=== PATIENT | female | born 2000 | race Hispanic/Latino ===

== ENCOUNTER 2020-09-24 14:42 | Emergency (ER) | payer OTHER, SELFPAY ==
[2020-09-24 15:09] LABS: Absolute Lymphocytes (CBC) 2.1 K/uL (0.7-4.9); Basophils % 0.3 % (0-1.3); Hematocrit 50.3 % (36.0-45.0); Lymphocytes % 10.3 % (15.3-44.8); MPV 10.7 fL (7.6-11.3); RBC Red Blood Cell Count 5.59 M/uL (3.86-4.86)
[2020-09-24 15:26] LABS: ALT/SGPT 46 U/L (12-78); AST/SGOT 22 U/L (15-37); Albumin 4.9 g/dL (3.4-5.0); Alkaline Phosphatase 130 U/L (45-117); BUN Blood Urea Nitrogen 9 mg/dL (7-18); Bicarbonate 20 mmol/L (21-32); Bilirubin Direct 0.2 mg/dL (0-0.2); Bilirubin Total 0.8 mg/dL (0.2-1.0); Lipase 116 U/L (73-393); Potassium 4.1 mmol/L (3.5-5.1); Protein, Total 9.6 g/dL (6.4-8.2); Sodium Level 135 mmol/L (136-145)
[2020-09-24 15:28] LABS: Glucose Level 403 mg/dL (74-106)
[2020-09-24 15:51] LABS: Urine Specific Gravity >1.030 (1.005-1.030)
[2020-09-24 15:51] LABS: Urine Blood 1+ (NEG); Urine Glucose 2+ (NEG); Urine Protein 3+ (NEG); Urine Specific Gravity >1.030 (1.005-1.030); Urine pH 5.5 (5.0-7.0)
[2020-09-24] MEDS ORDERED: INSULIN -REGULAR HUMAN 50 UNIT/0.5 ML ML ONE (16:09)
[2020-09-24] MEDS ORDERED: MORPHINE 2 MG/ML SYR ONE (16:10)
[2020-09-24] MEDS ORDERED: ACETAMINOPHEN 500 MG TAB ONE (16:11)
[2020-09-24] MEDS ORDERED: ONDANSETRON 4 MG/2 ML VIAL ONE (16:11)
[2020-09-24 16:19] LABS: Blood Morphology Comment NOT SEEN (NOT SEEN); Platelet Estimate ADEQ
[2020-09-24 16:30] LABS: Arterial Blood Carboxyhemoglob 0.9 % (0-1.5); Blood Gas Oxyhemoglobin 96.2 % (94-97); Blood O2 Saturation 97.9 % (92-98.5)
--- NOTE | 2020-09-24 17:30 | RAD REPORT ---
EXAM DESCRIPTION: CT - Chest Abdomen Pelvis W Cont - 09/24/2020 5:06 pm CLINICAL HISTORY: Chest and abdominal pain COMPARISON: none TECHNIQUE: Computed axial tomography of the chest, abdomen and pelvis was obtained. 100 cc Isovue-30 0 was administered intravenously. Oral contrast was not requested limiting evaluation of bowel All CT scans are performed using dose optimization technique as appropriate and may include automated exposure control or mA/KV adjustment according to patient size. FINDINGS: A 3 millimeter right middle lobe nodule No mediastinal or hilar lymphadenopathy A pleural effusion is not present. A pericardial effusion is not noted Hepatomegaly. Fatty liver. Spleen, pancreas, adrenals and kidneys appear unremarkable. There is no evidence of diverticulitis. Normal appendix No adnexal mass IMPRESSION: 3 millimeter right middle lobe nodule likely benign. If patient is high risk follow up C T chest in 6-12 months recommended Fatty liver.
[2020-09-24] MEDS ORDERED: NA CHLORIDE 0.9% 1,000 ML ONE (18:14)
[2020-09-24 19:58] LABS: BUN Blood Urea Nitrogen 8 mg/dL (7-18); Bicarbonate 21 mmol/L (21-32); Glucose Level 227 mg/dL (74-106); Potassium 3.9 mmol/L (3.5-5.1); Sodium Level 139 mmol/L (136-145)
--- NOTE | 2020-09-24 20:11 | ER ---
Nurse's Notes [facility] Name: Maddie Renteria Age: 19 yrs Sex: Female : 2000 Arrival Date: 09/24/2020 Time: 14:43 Bed 20 Private MD: Diagnosis: Vomiting;Hyperglycemia, unspecified Presentation: 09/24 14:45 Chief complaint: Patient states: Pt c/o left sided pain and low back pain, vomiting ah started at noon today. EMS states that it was "green bile" Pt does admit to drinking a large amount of alcohol yesterday. Coronavirus screen: At this time, the client does not indicate any symptoms associated with coronavirus-19. Ebola Screen: No symptoms or risks identified at this time. Risk Assessment: Do you want to hurt yourself or someone else? Patient reports no desire to harm self or others. Onset of symptoms was September 24, 2020. 14:45 Method Of Arrival: EMS: [facility] 14:45 Acuity: TANIYA 3 ah 17:33 Acuity: TANIYA 2 18:45 Initial Sepsis Screen: Does the patient meet any 2 criteria? Yes Does the patient have ah a suspected source of infection? No. Patient's initial sepsis screen is negative. Historical: - Allergies: 15:43 No Known Allergies; - Home Meds: 15:43 levemir insulin daily [Active]; - PMHx: 15:43 Diabetes - IDDM; - PSHx: 15:43 None; - Immunization history:: Adult Immunizations not up to date. - Social history:: Smoking status: Patient denies any tobacco usage or history of. Patient uses alcohol, weekly. Screenin:44 Abuse screen: Denies threats or abuse. Nutritional screening: No deficits noted. Tuberculosis screening: No symptoms or risk factors identified. Fall Risk None identified. Assessment: 16:00 General: Appears uncomfortable, Behavior is calm, cooperative, appropriate for age. Pain: Complains of pain in anterior aspect of left lateral abdomen and left upper quadrant Pain currently is 8 out of 10 on a pain scale. Quality of pain is described as aching, Pain began 4 hours ago. Neuro: Level of Consciousness is awake, alert, obeys commands, Oriented to person, place, time, situation, Appropriate for age. Cardiovascular: Heart tones S1 S2 present Capillary refill < 3 seconds Patient's skin is warm and dry. Respiratory: Airway is patent Respiratory effort is even, unlabored, Respiratory pattern is regular, Breath sounds are clear bilaterally. GI: Bowel sounds present X 4 quads. Abd is soft Reports vomiting. : No signs and/or symptoms were reported regarding the genitourinary system. Derm: Skin is intact, is healthy with good turgor. Musculoskeletal: No signs and/or symptoms reported regarding the musculoskeletal system. 17:00 Reassessment: Patient and/or family updated on plan of care and expected duration. Pain ah level reassessed. Patient is alert, oriented x 3, equal unlabored respirations, skin warm/dry/pink. Pt resting at this time. No needs voiced. 18:48 Reassessment: Accucheck repeated, 233. Pt states that pain is still better at this ah time. No needs voiced. 19:22 Reassessment: Patient and/or family updated on plan of care and expected duration. Pain ea level reassessed. Patient is alert, oriented x 3, equal unlabored respirations, skin warm/dry/pink. Pt reports she is feeling better. 20:16 Reassessment: Patient and/or family updated on plan of care and expected duration. Pain ea level reassessed. Patient is alert, oriented x 3, equal unlabored respirations, skin warm/dry/pink. Discharge instruction given to patient, verbalized the understanding of instruction. Pt left ED ambulatory tolerating well. Patient states feeling better. Vital Signs: 15:00 BP 148 / 97 LA (auto/reg); Pulse 98; Resp 12; Temp 97.8(O); Pulse Ox 97% ; Pain 7/10; jp3 16:00 BP 139 / 95; Pulse 109; Resp 14; Pulse Ox 96% ; ah 17:00 BP 124 / 77; Pulse 101; Resp 14; Pulse Ox 97% ; ah 18:00 BP 122 / 71; Pulse 113; Resp 16; Pulse Ox 97% ; ah 20:05 BP 114 / 69; Pulse 90; Resp 18; Pulse Ox 98% ; ea 15:00 POC Glucose-- 430 jp3 ED Course: 14:43 Patient arrived in ED. ds1 14:44 Tim Barnard PA is PHCP. jmm 14:44 Keysha Osman MD is Attending Physician. frantz 14:58 Clarissa Gallegos, RN is Primary Nurse. ah 15:00 Initial lab(s) drawn, by sc, sent to lab. Inserted saline lock: 20 gauge in right jp3 antecubital area, using aseptic technique. Blood collected. Patient maintains SpO2 saturation greater than 95% on room air. 15:02 Placed in gown. Bed in low position. Call light in reach. Side rails up X2. Warm jp3 blanket given. Verbal reassurance given. environmental monitoring technician on. Pulse ox on. NIBP on. 15:39 Triage completed. ah 15:43 Urine collected: clean catch specimen, clear, yary colored. jp3 18:45 Arm band placed on right wrist. 19:07 Primary Nurse role handed off by Clarissa Gallegos, RN mw2 19:22 Judy Smith, COLT is Primary Nurse. ea 20:17 No provider procedures requiring assistance completed. IV discontinued, intact, ea bleeding controlled, No redness/swelling at site. Pressure dressing applied. Administered Medications: 15:34 Drug: NS 0.9% 2000 ml Route: IV; Rate: 1 bolus; Site: right antecubital; ah 15:57 Drug: Tylenol 1000 mg Route: PO; ah 18:02 Follow up: Response: No adverse reaction 15:57 Drug: Zofran (Ondansetron) 4 mg Route: IVP; Site: right antecubital; ah 18:02 Follow up: Response: No adverse reaction 15:58 Drug: morphine 2 mg Route: IVP; Site: right antecubital; ah 18:02 Follow up: Response: No adverse reaction 16:00 Drug: Insulin Regular Human 10 units {Co-Signature: vg1 (Marjorie Wasserman RN).} Route: ah IVP; Site: right antecubital; 19:22 Follow up: Response: No adverse reaction 17:55 Drug: NS 0.9% 1000 ml Route: IV; Rate: 1 bolus; Site: right antecubital; ah 20:15 Follow up: Response: No adverse reaction; IV Status: Completed infusion; IV Intake: ea 1000ml Point of Care Testing: Urine : 15:43 hCG Reading: Negative; Control Reading: Positive; jp3 Intake: 20:15 IV: 1000ml; Total: 1000ml. ea Outcome: 20:11 Discharge ordered by . frantz 20:17 Discharged to home ambulatory. josé luis 20:17 Condition: stable 20:17 Discharge instructions given to patient, Instructed on discharge instructions, follow up and referral plans. medication usage, Demonstrated understanding of instructions, follow-up care, medications, Prescriptions given X 1. 20:19 Patient left the ED. ea Signatures: Tim Barnard PA PA jmm Sanford, Demi ds1 Fatmata Carbajal, COLT RN Judy Lara RN RN Layne Vail mw2 Viraj Lebron jp3 Clarissa Gallegos RN RN jerson Wasserman RN vg1
--- NOTE | 2020-09-24 20:11 | EDPHYS ---
Physician Documentation [facility] Name: Maddie Renteria Age: 19 yrs Sex: Female : 2000 Arrival Date: 09/24/2020 Time: 14:43 Bed 20 Private MD: ED Physician Keysha Osman HPI: 09/24 16:41 This 19 yrs old Female presents to ER via EMS with complaints of Back Pain, jmm Abdominal Pain. 16:41 The patient presents with pain that is acute. Onset: The symptoms/episode jmm began/occurred this morning. The pain radiates to the left upper quadrant. Associated signs and symptoms: Pertinent positives: vomiting. Modifying factors: The patient symptoms are alleviated by nothing, the patient symptoms are aggravated by nothing. This is a 19 year old female with a history of DM, that presents to the ED with complaints of left flank pain, vomiting beginning earlier today. Pain has migrated to the lower back and will occasionally migrate to the left upper quadrant. . Historical: - Allergies: 15:43 No Known Allergies; - Home Meds: 15:43 levemir insulin daily [Active]; - PMHx: 15:43 Diabetes - IDDM; - PSHx: 15:43 None; - Immunization history:: Adult Immunizations not up to date. - Social history:: Smoking status: Patient denies any tobacco usage or history of. Patient uses alcohol, weekly. ROS: 16:41 Constitutional: Negative for fever, chills, and weight loss, Cardiovascular: Negative jmm for chest pain, palpitations, and edema, Respiratory: Negative for shortness of breath, cough, wheezing, and pleuritic chest pain. 16:41 Abdomen/GI: Positive for abdominal pain, nausea and vomiting, diarrhea. 16:41 All other systems are negative. Exam: 16:41 Constitutional: This is a well developed, well nourished patient who is awake, alert, jmm and in no acute distress. Head/Face: atraumatic. Eyes: EOMI, no conjunctival erythema appreciated ENT: Moist Mucus Membranes Neck: Trachea midline, Supple Chest/axilla: Normal chest wall appearance and motion. Cardiovascular: Regular rate and rhythm. No edema appreciated Respiratory: Normal respirations, no respiratory distress appreciated 16:41 Back: Normal ROM Skin: General appearance color normal MS/ Extremity: Moves all extremities, no obvious deformities appreciated, no edema noted to the lower extremities Neuro: Awake and alert, normal gait Psych: Behavior is normal, Mood is normal, Patient is cooperative and pleasant 16:41 Abdomen/GI: Inspection: abdomen appears normal, Bowel sounds: normal, Palpation: soft, mild abdominal tenderness, in the left upper quadrant. Vital Signs: 15:00 BP 148 / 97 LA (auto/reg); Pulse 98; Resp 12; Temp 97.8(O); Pulse Ox 97% ; Pain 7/10; jp3 16:00 BP 139 / 95; Pulse 109; Resp 14; Pulse Ox 96% ; ah 17:00 BP 124 / 77; Pulse 101; Resp 14; Pulse Ox 97% ; ah 18:00 BP 122 / 71; Pulse 113; Resp 16; Pulse Ox 97% ; ah 20:05 BP 114 / 69; Pulse 90; Resp 18; Pulse Ox 98% ; ea 15:00 POC Glucose-- 430 jp3 MDM: 15:07 Patient medically screened. [facility] 20:09 Data reviewed: vital signs, nurses notes. Counseling: I had a detailed discussion with frantz the patient and/or guardian regarding: the historical points, exam findings, and any diagnostic results supporting the discharge/admit diagnosis, lab results, radiology results, the need for outpatient follow up, to return to the emergency department if symptoms worsen or persist or if there are any questions or concerns that arise at home. ED course: Patient is alert and non toxic in appearance in the ED. Able to tolerate PO in the ED. Decreased BGL in the ED. No anion gap, normal abg. Advised to follow up with pcp and otherwise given strict return precautions. . 09/24 14:45 Order name: Basic Metabolic Panel [facility] 09/24 14:45 Order name: CBC with Diff [facility] 09/24 14:45 Order name: Hepatic Function [facility] 09/24 14:45 Order name: Lipase [facility] 09/24 14:46 Order name: Basic Metabolic Panel; Complete Time: 15:32 [facility] 09/24 14:46 Order name: CBC with Automated Diff; Complete Time: 16:26 [facility] 09/24 14:46 Order name: Liver (Hepatic) Function; Complete Time: 15:32 [facility] 09/24 14:46 Order name: Lipase; Complete Time: 15:32 [facility] 09/24 15:08 Order name: Glucose, Ancillary Testing; Complete Time: 15:11 [facility] 09/24 15:24 Order name: ABG; Complete Time: 16:34 [facility] 09/24 15:44 Order name: Urine Dipstick--Ancillary (enter results); Complete Time: 16:00 09/24 15:46 Order name: Urine --Ancillary (enter results); Complete Time: 16:00 09/24 16:00 Order name: D-Dimer; Complete Time: 16:26 [facility] 09/24 16:19 Order name: Manual Differential; Complete Time: 16:26 [facility] 09/24 14:45 Order name: IV Saline Lock; Complete Time: 15:00 [facility] 09/24 14:45 Order name: Labs collected and sent; Complete Time: 15:00 [facility] 09/24 14:45 Order name: Urine Dipstick-Ancillary (obtain specimen); Complete Time: 15:43 [facility] 09/24 14:45 Order name: Urine Test (obtain specimen); Complete Time: 15:43 [facility] 09/24 15:28 Order name: Misc. Order: need upt; Complete Time: 15:43 [facility] 09/24 16:26 Order name: CT Chest, Abdomen, Pelvis - W/Contrast [facility] 09/24 17:31 Order name: CT; Complete Time: 17:32 [facility] 09/24 18:59 Order name: Glucose, Ancillary Testing; Complete Time: 19:00 [facility] 09/24 19:05 Order name: BMP; Complete Time: 20:09 [facility] Administered Medications: 15:34 Drug: NS 0.9% 2000 ml Route: IV; Rate: 1 bolus; Site: right antecubital; 15:57 Drug: Tylenol 1000 mg Route: PO; 18:02 Follow up: Response: No adverse reaction 15:57 Drug: Zofran (Ondansetron) 4 mg Route: IVP; Site: right antecubital; 18:02 Follow up: Response: No adverse reaction 15:58 Drug: morphine 2 mg Route: IVP; Site: right antecubital; 18:02 Follow up: Response: No adverse reaction 16:00 Drug: Insulin Regular Human 10 units {Co-Signature: vg1 (Marjorie Wasserman RN).} Route: ah IVP; Site: right antecubital; 19:22 Follow up: Response: No adverse reaction 17:55 Drug: NS 0.9% 1000 ml Route: IV; Rate: 1 bolus; Site: right antecubital; 20:15 Follow up: Response: No adverse reaction; IV Status: Completed infusion; IV Intake: ea 1000ml Point of Care Testing: Urine : 15:43 hCG Reading: Negative; Control Reading: Positive; jp3 Disposition: 09/25 18:30 Co-signature as Attending Physician, Keysha Osman MD. ma2 Disposition: 09/24/20 20:11 Discharged to Home. Impression: Vomiting, Hyperglycemia, unspecified. - Condition is Stable. - Discharge Instructions: Nausea and Vomiting, Adult. - Prescriptions for Zofran ODT 4 mg Oral tablet,disintegrating - place 1 tablet by TRANSLINGUAL route every 4-6 hours; 20 tablet. - Medication Reconciliation Form, Thank You Letter, Antibiotic Education, Prescription Opioid Use form. - Follow up: Private Physician; When: 2 - 3 days; Reason: Recheck today's complaints, Continuance of care, Re-evaluation by your physician. Signatures: Dispatcher [employer] EDMS Tim Barnard PA PA jmm Antunez, Elena, RN RN ea Alzahri, Mohammad, MD MD or2 Clarissa Gallegos, RN RN jerson Wasserman RN vg1 Corrections: (The following items were deleted from the chart) 09/24 20:19 20:11 09/24/2020 20:11 Discharged to Home. Impression: Vomiting; Hyperglycemia, ea unspecified. Condition is Stable. Forms are Medication Reconciliation Form, Thank You Letter, Antibiotic Education, Prescription Opioid Use. Follow up: Private Physician; When: 2 - 3 days; Reason: Recheck today's complaints, Continuance of care, Re-evaluation by your physician. frantz
[2020-09-24 20:37] VITALS: TEMP 97.8
[2020-09-24 20:43] VITALS: BP 114/69; O2SAT 98
== END 2020-09-24 20:19 | disposition home or self-care (01) ==
LOC: ER 14:42
DX: E11.65 Type 2 diabetes mellitus with hyperglycemia (principal); Z79.4 Long term (current) use of insulin; R11.10 Vomiting, unspecified
CPT/HCPCS: 36415; 71260; 74177; 80048; 80076; 81003; 81025; 82805; 82947; 83690; 85025; 85379; 96361; 96374; 96375; 99285; J2270; J2405; J7030; Q9967

== ENCOUNTER 2021-09-03 12:05 | Inpatient (IN) | payer SELFPAY ==
[2021-09-03] MEDS ORDERED: NA CHLORIDE 0.9% 2,000 ML ONE (12:31)
[2021-09-03 12:45] LABS: Urine Blood 1+ (Negative); Urine Glucose 2+ (Negative); Urine Protein 3+ (Negative); Urine Specific Gravity >=1.030 (1.005-1.030)
[2021-09-03] MEDS ORDERED: INSULIN -REGULAR HUMAN 100 UNIT in NA CHLORIDE 0.9% 100 ML IV SCH (13:00)
[2021-09-03 13:01] LABS: Barbiturates NEGATIVE (NEGATIVE); Benzodiazepines POSITIVE (NEGATIVE); Cocaine POSITIVE (NEGATIVE); METHAMPHETAM POSITIVE (NEGATIVE); Methadone NEGATIVE (NEGATIVE); Opiates NEGATIVE (NEGATIVE); Phencyclidine NEGATIVE (NEGATIVE); THC Cannibis POSITIVE (NEGATIVE)
[2021-09-03 13:04] LABS: Urine Specific Gravity/Preg >1.030 (1.005-1.030)
[2021-09-03 13:11] LABS: Absolute Lymphocytes (CBC) 4.9 K/uL (0.7-4.9); Hematocrit 49.5 % (36.0-45.0); Lymphocytes % 10.6 % (15.3-44.8); MPV 10.4 fL (7.6-11.3); RBC Red Blood Cell Count 5.03 M/uL (3.86-4.86)
[2021-09-03 13:16] LABS: Protime INR 0.98
[2021-09-03 13:33] LABS: Blood Morphology Comment NOT SEEN (NOT SEEN); Platelet Estimate ADEQ
[2021-09-03 13:44] LABS: ALT/SGPT 35 U/L (12-78); AST/SGOT 24 U/L (15-37); Albumin 3.6 g/dL (3.4-5.0); Alkaline Phosphatase 139 U/L (45-117); BUN Blood Urea Nitrogen 18 mg/dL (7-18); Bilirubin Direct < 0.1 mg/dL (0-0.2); Bilirubin Total 0.5 mg/dL (0.2-1.0); Glucose Level 834 mg/dL (74-106); Potassium 4.8 mmol/L (3.5-5.1); Protein, Total 8.3 g/dL (6.4-8.2); Sodium Level 128 mmol/L (136-145)
[2021-09-03 13:46] LABS: Bicarbonate 5 mmol/L (21-32)
[2021-09-03] MEDS ORDERED: PIPERACIL/TAZO 3.375 GM VIAL IV ONE (13:57)
[2021-09-03] MEDS ORDERED: NA CHLORIDE 0.9% 0 ML ONE (13:57)
[2021-09-03 13:58] LABS: Arterial Blood Carboxyhemoglob 1.2 % (0-1.5); Blood Gas Oxyhemoglobin 94.8 % (94-97); Blood O2 Saturation 97.4 % (92-98.5)
[2021-09-03] MEDS ORDERED: NA CHLORIDE 0.9% 100 ML ONE (13:59)
[2021-09-03] MEDS ORDERED: NA CHLORIDE 0.9% 1,000 ML ONE ×2 (14:02→19:42)
[2021-09-03] MEDS ORDERED: NACHLORIDE 0.45% 1,000 ML with NA BICARB 8.4% 100 MEQ IV SCH ×2 (15:00)
--- NOTE | 2021-09-03 15:35 | ER ---
Nurse's Notes [facility] Name: Maddie Renteria Age: 20 yrs Sex: Female : 2000 Arrival Date: 09/03/2021 Time: 12:10 Bed 5 Private MD: Diagnosis: Type 1 diabetes mellitus with ketoacidosis without coma;Dehydration;Drug abuse counseling and surveillance of drug abuser;Elevated white blood cell count Presentation: 09/03 12:05 Chief complaint: EMS states: At apporximately 1130 EMS was toned out by family to get vg1 pt from friends house. Pt was found on the porch and moaning. States family stated has depression and DM, and is noncompliant with medications; sister stated 'I know for the past couple of days shes been drinking alcohol and taking Xanax, ectasy, and meth.' EMS stated took pt BS and it read 'high'; also stated gave 2mg of Narcan. 12:05 Coronavirus screen: Vaccine status: Patient reports being unvaccinated. Client denies vg1 travel out of the [place] in the last 14 days. Ebola Screen: Patient negative for fever greater than or equal to 101.5 degrees Fahrenheit, and additional compatible Ebola Virus Disease symptoms. Initial Sepsis Screen: Does the patient meet any 2 criteria? RR > 20 per min. Temp <36.0*C (96.8*F)) or > 38.3*C (100.9*F). Yes Does the patient have a suspected source of infection? No. Patient's initial sepsis screen is negative. Risk Assessment: Do you want to hurt yourself or someone else? Patient reports no desire to harm self or others. Onset of symptoms was September 03, 2021. 12:05 Method Of Arrival: EMS: [facility] vg1 12:05 Acuity: TANIYA 2 vg1 Triage Assessment: 12:10 General: Appears distressed, uncomfortable, Behavior is drowsy. Pain: Denies pain. vg1 EENT: appears to have dry blood around lips. Neuro: Level of Consciousness is awake, alert, lethargic, listless, Oriented to Speech is slurred. Cardiovascular: Capillary refill is > 3 seconds in bilateral fingers Rhythm is sinus rhythm. Respiratory: Airway is patent Respiratory effort is even, unlabored, Respiratory pattern is Kussmaul tachypnea. GI: Abdomen is flat, non-distended. : No signs and/or symptoms were reported regarding the genitourinary system. Urine is clear. Derm: Skin is intact, Skin temperature is cold. Musculoskeletal: Capillary refill is > 3 seconds, in bilateral fingers. 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 - Social history:: Smoking status: Patient reports the use of cigarette tobacco products, denies chronic smoking, but will smoke occasionally. Screenin:56 Nutritional screening: No deficits noted. Tuberculosis screening: No symptoms or risk vg1 factors identified. Fall Risk No fall in past 12 months (0 pts). No secondary diagnosis (0 pts). IV access (20 points). Ambulatory Aid- None/Bed Rest/Nurse Assist (0 pts). Gait- Normal/Bed Rest/Wheelchair (0 pts) Mental Status- Overestimates/Forgets Limitations (15 pts.). Total Hernandes Fall Scale indicates Low Risk Score (25-44 pts). Fall prevention measures have been instituted. Side Rails Up X 2 Placed close to Nursing Station Family Present and informed to notify staff if they need to leave bedside. 09/04 01:00 Abuse screen: Denies threats or abuse. al4 Assessment: 09/03 12:56 Reassessment: SEE TRIAGE. vg1 14:00 Reassessment: Patient appears in no apparent distress at this time. Patient and/or vg1 family updated on plan of care and expected duration. Pain level reassessed. awake and alert. 14:50 Reassessment: Patient appears in no apparent distress at this time. Patient and/or vg1 family updated on plan of care and expected duration. Pain level reassessed. When pt is asked questions pt is able to state 'yes' or 'no' answers. Pt is awake, alert, and is able to recognized family. Pt mother at bedside. Patient denies pain at this time. 15:18 Reassessment: Received VO from Hilton RESENDIZ to change pts Insulin drip to 7 units/hr due to vg1 glucose results of 571. 15:20 Reassessment: Sodium Bicarb at 75 ml/ hr started, placed to Right femoral IV. vg1 16:00 Reassessment: Patient appears in no apparent distress at this time. Patient and/or vg1 family updated on plan of care and expected duration. Pain level reassessed. Patient is alert, oriented x 3, equal unlabored respirations, skin warm/dry/pink. Patient denies pain at this time. 20:00 General: Appears in no apparent distress. comfortable, Behavior is calm, cooperative, al4 drowsy. Pain: Denies pain. Neuro: Level of Consciousness is awake, obeys commands, . Oriented to person, place, time, situation, Speech is slightly slurred. Cardiovascular: Heart tones present Capillary refill < 3 seconds Patient's skin is warm and dry. Pulses are 2+ in right radial artery, right dorsalis pedis artery, left radial artery and left dorsalis pedis artery Rhythm is sinus tachycardia. Respiratory: Airway is patent Respiratory effort is even, unlabored, Respiratory pattern is regular, symmetrical. GI: Abdomen is non-distended, Bowel sounds present X 4 quads. : Freeman in place. Derm: No signs and/or symptoms reported regarding the dermatologic system. Musculoskeletal: Circulation, motion, and sensation intact. Capillary refill < 3 seconds. 20:00 EENT: dry blood around lips, patient can open mouth and smile. al4 20:00 Reassessment: physician gave permission for ice chips. al4 22:30 Reassessment: No changes from previously documented assessment. Patient and/or family al4 updated on plan of care and expected duration. Pain level reassessed. Mother at bedside. All questions answered. Patient is sleeping.. 09/04 01:23 Reassessment: ASTRID Tatum is aware of high HR and high RR. . al4 01:23 Reassessment: Patient and/or family updated on plan of care and expected duration. Pain al4 level reassessed. Patient denies pain at this time. 02:17 Reassessment: Patient and/or family updated on plan of care and expected duration. Pain al4 level reassessed. Patient denies pain at this time. 03:17 Reassessment: No changes from previously documented assessment. al4 04:15 Reassessment: No changes from previously documented assessment. Patient and/or family al4 updated on plan of care and expected duration. Pain level reassessed. Vital Signs: 09/03 12:05 BP 121 / 72; Pulse 97; Resp 40; Temp 91.4(R); Pulse Ox 100% on R/A; Weight 62.14 kg; vg1 Height 5 ft. 4 in. (162.56 cm); Pain 0/10; 13:00 BP 131 / 70; Pulse 98; Resp 22; Pulse Ox 100% ; vg1 14:00 BP 134 / 78; Pulse 103; Resp 25; Pulse Ox 100% ; vg1 14:30 BP 125 / 65; Pulse 112; Resp 24; Pulse Ox 100% ; vg1 15:00 BP 135 / 81; Pulse 118; Resp 23; Pulse Ox 100% ; vg1 15:30 BP 139 / 81; Pulse 120; Resp 23; Temp 97.5(O); Pulse Ox 100% on R/A; vg1 16:00 BP 139 / 71; Pulse 125; Resp 23; Temp 98.3(O); Pulse Ox 100% on R/A; vg1 19:30 BP 119 / 79; Pulse 122; Resp 19; Pulse Ox 100% ; al4 20:30 BP 127 / 76; Pulse 133; Resp 22; Pulse Ox 100% ; al4 21:30 BP 116 / 69; Pulse 119; Resp 19; Pulse Ox 100% ; al4 22:30 BP 126 / 81; Pulse 119; Resp 20; Pulse Ox 100% on R/A; al4 23:30 BP 123 / 67; Pulse 123; Resp 20; Pulse Ox 100% on R/A; al4 09/04 00:30 BP 111 / 73; Pulse 124; Resp 30; Pulse Ox 100% on R/A; al4 01:18 BP 118 / 81; Pulse 122; Resp 20; Pulse Ox 100% ; Pain 0/10; al4 01:30 BP 140 / 86; Pulse 122; Resp 34 S; Pulse Ox 100% on R/A; Pain 0/10; al4 02:30 BP 142 / 85; Pulse 127; Resp 32; Pulse Ox 100% ; Pain 0/10; al4 03:30 BP 127 / 86; Pulse 118; Resp 25; Pulse Ox 100% ; Pain 0/10; al4 04:00 BP 122 / 79; Pulse 114; Resp 20; Temp 97.8; Pulse Ox 100% ; Pain 0/10; al4 04:30 BP 112 / 67; Pulse 115; Resp 28; Pulse Ox 100% ; Pain 0/10; al4 09/03 12:05 Body Mass Index 23.52 (62.14 kg, 162.56 cm) vg1 [place] Coma Score: 09/03 12:15 Eye Response: to voice(3). Verbal Response: inappropriate words(3). Motor Response: vg1 localizes pain(5). Total: 11. ED Course: 12:10 Patient arrived in ED. iw 12:10 Arm band placed on. vg1 12:15 Hilton Campos PA is PHCP. jr8 12:15 Kenney Branham MD is Attending Physician. jr8 12:28 Guy Reyes RN is Primary Nurse. jd3 12:28 Patient has correct armband on for positive identification. Placed in gown. Bed in low vg1 position. Call light in reach. Side rails up X2. Adult w/ patient. front desk monitor on. Pulse ox on. NIBP on. Door closed. Lights dimmed. Warm blanket given. ronit hugger placed. 12:37 EKG done, by ED staff, reviewed by Hilton RESENDIZ. mb7 12:37 freeman catheter 16f with temperature senor. vg1 12:50 Triage completed. vg1 13:00 Maintain EMS IV. Dressing intact. Good blood return noted. Site clean \T\ dry. Gauge \T\ vg 1 site: 20 g L AC. Patient maintains SpO2 saturation greater than 95% on room air. 14:18 Assisted provider with central line placement. Set up central line tray. Triple lumen vg1 line placed in right femoral. Line placed by Hilton RESENDIZ Placement verified by blood return, Dressed with Tegaderm, Blood was collected. Patient tolerated well. 14:25 First set of blood cultures drawn by me. vg1 14:40 COVID swab sent to lab. vg1 14:42 Second set of blood cultures drawn by me. vg1 15:35 Keysha Garcia MD is Hospitalizing Provider. jr8 20:06 Report given to COLT Lynn. vg1 09/04 04:53 Patient admitted, IV remains in place. al4 Administered Medications: 09/03 12:29 Not Given (Duplicate Order): Insulin Drip - (Insulin Regular Human 100 units, NS 0.9% jd3 100 ml) IV at calculated rate continuous; Standard concentration 1unit/ml; Dose for DKA is 0.1 units/kg/hr 12:37 Drug: NS 0.9% 1000 ml Route: IV; Rate: 1000 ml; Site: left antecubital; jd3 15:47 Follow up: IV Status: Completed infusion; IV Intake: 1000ml vg1 12:37 Drug: NS 0.9% 1000 ml Route: IV; Rate: 1000 ml; Site: left antecubital; jd3 15:47 Follow up: IV Status: Completed infusion; IV Intake: 1000ml vg1 13:15 Drug: Insulin Drip - (Insulin Regular Human 100 units, NS 0.9% 100 ml) {Co-Signature: vg1 jd3 (Guy Reyes RN).} Route: IV; Rate: calculated rate; Site: left antecubital; 14:07 Drug: Sodium Bicarbonate 1 amp Route: IVP; Site: right antecubital; jd3 15:46 Follow up: Response: No adverse reaction vg1 14:08 Drug: NS 0.9% 1000 ml Route: IV; Rate: 1000 ml; Site: right antecubital; jd3 15:46 Follow up: IV Status: Completed infusion; IV Intake: 1000ml vg1 14:38 Drug: Zosyn (piperacillin-tazobactam) 3.375 grams Route: IVPB; Infused Over: 60 mins; vg1 Site: right femoral; 15:46 Follow up: IV Status: Completed infusion; IV Intake: 100ml vg1 16:17 Drug: Ringers - Lactated Ringers Solution 1000 ml Route: IV; Rate: bolus; Site: left vg1 antecubital; Intake: 15:46 IV: 1000ml; Total: 1000ml. vg1 15:46 IV: 100ml; Total: 1100ml. vg1 15:47 IV: 1000ml; Total: 2100ml. vg1 15:47 IV: 1000ml; Total: 3100ml. vg1 16:29 IV: 3100ml (IV Fluid); Total: 6200ml. vg1 Output: 16:29 Urine: 1450ml (Freeman); Total: 1450ml. vg1 Outcome: 15:35 Decision to Hospitalize by Provider. jr8 09/04 04:53 Patient left the ED. bb 05:07 Admitted to ICU accompanied by nurse, accompanied by jean, Report called to COLT Cherry al4 05:07 Condition: stable 05:07 Discharge instructions given to patient, family, Instructed on the need for admit, Demonstrated understanding of instructions. Signatures: Chelle Bernardo RN RN bb Williams, Irene, RN RN iw Roszak, Josh, PA PA jr8 Guy Reyes RN RN jd3 Marjorie Wasserman RN RN vg1 Elizabeth Dozier mb7 Ismael Obrien al4 Guy Reyes RN jd3 Corrections: (The following items were deleted from the chart) 09/03 13:03 12:28 Door closed. Lights dimmed. Warm blanket given. bearhugger placed vg1 vg1 13:52 12:05 Chief complaint: EMS states: At apporximately 1130 EMS was toned out by family to vg1 get pt from friends house. Pt was found on the porch and moaning. States family stated has depression and DM, and is noncompliant with medications; sister stated 'I know for the past couple of days shes been drinking alcohol and taking Xanax and ectasy.' EMS stated took pt BS and it read 'high'. vg1 13:57 12:05 Chief complaint: EMS states: At apporximately 1130 EMS was toned out by family to vg1 get pt from friends house. Pt was found on the porch and moaning. States family stated has depression and DM, and is noncompliant with medications; sister stated 'I know for the past couple of days shes been drinking alcohol and taking Xanax, ectasy, and meth.' EMS stated took pt BS and it read 'high'. vg1 16:31 14:00 Reassessment: Patient appears in no apparent distress at this time. Patient vg1 and/or family updated on plan of care and expected duration. Pain level reassessed. Patient is alert, oriented x 3, equal unlabored respirations, skin warm/dry/pink. vg1 16:31 14:50 Reassessment: Patient appears in no apparent distress at this time. Patient vg1 and/or family updated on plan of care and expected duration. Pain level reassessed. Patient is alert, oriented x 3, equal unlabored respirations, skin warm/dry/pink. When pt is asked questions pt is able to state 'yes' or 'no' answers. Pt is awake, alert, and is able to recognized family. Pt mother at bedside. Patient denies pain at this time. vg1 09/04 00:09/03 20:00 General: Appears in no apparent distress. comfortable, Behavior is calm, al4 cooperative, al4 09/04 00:09/03 20:00 Neuro: Level of Consciousness is awake, alert, obeys commands, Oriented to al4 person, place, time, situation, al4 09/04 00:09/03 20:00 Cardiovascular: Heart tones present Capillary refill < 3 seconds Patient's al4 skin is warm and dry. al4 09/04 01:09/03 20:00 Cardiovascular: Heart tones present Capillary refill < 3 seconds Patient's al4 skin is warm and dry. al4 09/04 03:18 01:23 Reassessment: Patient is alert, oriented x 3, equal unlabored respirations, skin al4 warm/dry/pink. al4 05:08 04:50 Reassessment: Report given to COLT Cherry. Patient alert and oriented. Patient al4 stable and transferred to ICU bed 3 by Adarsh and myself. all questions answered. al4 06:24 04:00 BP 122 / 79; Pulse 114bpm; Resp 25bpm; Pulse Ox 100%; Pain 0/10; al4 al4 06:45 09/03 20:00 General: Appears in no apparent distress. comfortable, Behavior is calm, al4 cooperative, drowsy, al4 09/04 06:45 09/03 20:00 EENT: dry blood around lips, patient can open mouth and smile. al4 al4 09/04 05:46 09/03 20:00 Neuro: Level of Consciousness is awake, obeys commands, . Oriented to al4 person, place, time, situation, al4 09/04 05:46 09/03 20:00 General: Appears in no apparent distress. comfortable, Behavior is calm, al4 cooperative, drowsy, al4
--- NOTE | 2021-09-03 15:36 | EDPHYS ---
Physician Documentation [facility] Name: Maddie Renteria Age: 20 yrs Sex: Female : 2000 Arrival Date: 09/03/2021 Time: 12:10 Bed 5 Private MD: ED Physician Kenney Branham HPI: 09/03 13:32 This 20 yrs old Female presents to ER via EMS with complaints of AMS. jr8 15:30 Current symptoms: In the emergency department the patient's symptoms are unchanged from jr8 the initial presentation. Patient's baseline: Neuro: alert and fully oriented, Motor: no deficits, Ambulation: walks without assistance, Speech: normal. It is unknown whether or not the patient has had similar symptoms in the past. It is unknown whether or not the patient has recently seen a physician. This is a 20-year-old female that presented to the emergency room via EMS for altered mentation. Family stated that they were called after patient was found outside for unknown period of time. Family stated that she has a history of drug abuse in the past but also has a history of insulin-dependent diabetes mellitus. EMS stated that patient is alert but confused. Glucose read high on their monitor.. OPTIMIZATION CONSULTANT: 12:10 LMP N/A - control method vg1 Historical: - Allergies: 12:50 No Known Allergies; vg1 - Home Meds: 12:50 levemir insulin daily [Active]; vg1 - PMHx: 12:50 Diabetes - IDDM; vg1 - Immunization history:: Client reports having NOT received the Covid vaccine. - Social history:: Smoking status: Patient reports the use of cigarette tobacco products, denies chronic smoking, but will smoke occasionally. ROS: 15:30 Unable to obtain ROS due to altered mental status. jr8 Exam: 15:30 Skin: Warm, dry with normal turgor. Normal color with no rashes, no lesions, and no jr8 evidence of cellulitis. MS/ Extremity: Pulses equal, no cyanosis. Neurovascular intact. Full, normal range of motion. 15:30 ENT: Mouth: Lips: dry, Oral mucosa: dry, Gums: pink, Tongue: is normal, dried blood noted without laceration to oral mucosa or tongue , Posterior pharynx: Airway: patent, Tonsils: are normal in appearance, Uvula: midline, non-edematous, no erythema, swelling, is not appreciated. 15:30 Cardiovascular: Rate: tachycardic, Rhythm: regular, Pulses: Pulses are 2+ in right radial artery and left radial artery. Heart sounds: normal, normal S1and S2, no S3 or S4, no murmur, no rub, no gallop, Edema: is not appreciated. 15:30 Respiratory: the patient does not display signs of respiratory distress, Respirations: tachypnea, that is moderate, Breath sounds: are clear throughout. 15:30 Abdomen/GI: Inspection: abdomen appears normal, Bowel sounds: active, all quadrants, Palpation: abdomen is soft and non-tender, in all quadrants. 15:30 Neuro: Orientation: to person, Mentation: able to follow commands, slow to respond, Memory: unable to test, Cranial nerves: extraocular movements are intact, Facial palsy and sensory deficits are absent. Tongue strength is normal, Motor: moves all fours, Sensation: no obvious gross deficits, seizure activity, is not displayed by the patient, Abnormal movements: there are no abnormal movements. Vital Signs: 12:05 BP 121 / 72; Pulse 97; Resp 40; Temp 91.4(R); Pulse Ox 100% on R/A; Weight 62.14 kg; vg1 Height 5 ft. 4 in. (162.56 cm); Pain 0/10; 13:00 BP 131 / 70; Pulse 98; Resp 22; Pulse Ox 100% ; vg1 14:00 BP 134 / 78; Pulse 103; Resp 25; Pulse Ox 100% ; vg1 14:30 BP 125 / 65; Pulse 112; Resp 24; Pulse Ox 100% ; vg1 15:00 BP 135 / 81; Pulse 118; Resp 23; Pulse Ox 100% ; vg1 15:30 BP 139 / 81; Pulse 120; Resp 23; Temp 97.5(O); Pulse Ox 100% on R/A; vg1 16:00 BP 139 / 71; Pulse 125; Resp 23; Temp 98.3(O); Pulse Ox 100% on R/A; vg1 19:30 BP 119 / 79; Pulse 122; Resp 19; Pulse Ox 100% ; al4 20:30 BP 127 / 76; Pulse 133; Resp 22; Pulse Ox 100% ; al4 21:30 BP 116 / 69; Pulse 119; Resp 19; Pulse Ox 100% ; al4 22:30 BP 126 / 81; Pulse 119; Resp 20; Pulse Ox 100% on R/A; al4 23:30 BP 123 / 67; Pulse 123; Resp 20; Pulse Ox 100% on R/A; al4 09/04 00:30 BP 111 / 73; Pulse 124; Resp 30; Pulse Ox 100% on R/A; al4 01:18 BP 118 / 81; Pulse 122; Resp 20; Pulse Ox 100% ; Pain 0/10; al4 01:30 BP 140 / 86; Pulse 122; Resp 34 S; Pulse Ox 100% on R/A; Pain 0/10; al4 02:30 BP 142 / 85; Pulse 127; Resp 32; Pulse Ox 100% ; Pain 0/10; al4 03:30 BP 127 / 86; Pulse 118; Resp 25; Pulse Ox 100% ; Pain 0/10; al4 04:00 BP 122 / 79; Pulse 114; Resp 20; Temp 97.8; Pulse Ox 100% ; Pain 0/10; al4 04:30 BP 112 / 67; Pulse 115; Resp 28; Pulse Ox 100% ; Pain 0/10; al4 09/03 12:05 Body Mass Index 23.52 (62.14 kg, 162.56 cm) vg1 Myla Coma Score: 09/03 12:15 Eye Response: to voice(3). Verbal Response: inappropriate words(3). Motor Response: vg1 localizes pain(5). Total: 11. Procedures: 14:25 Central Line: the site was prepped with Betadine, in sterile fashion, a triple lumen jr8 catheter was inserted, in the right femoral vein, in 1 attempts. placement was verified, by blood return, the site was dressed with 4X4s, Tegaderm, foam tape, using sterile technique, the patient tolerated the procedure, well. MDM: 12:15 Patient medically screened. 8 14:25 Data reviewed: vital signs, nurses notes, lab test result(s), EKG. Data interpreted: jr8 Pulse oximetry: on room air is 100 %. Interpretation: normal. Counseling: I had a detailed discussion with the patient and/or guardian regarding: the historical points, exam findings, and any diagnostic results supporting the discharge/admit diagnosis, lab results. 09/03 12:15 Order name: Acetaminophen 8 09/03 12:15 Order name: Basic Metabolic Panel 8 09/03 12:15 Order name: CBC with Diff; Complete Time: 13:43 8 09/03 12:15 Order name: ETOH Level; Complete Time: 13:27 8 09/03 12:15 Order name: Hepatic Function; Complete Time: 13:55 8 09/03 12:15 Order name: PT-INR; Complete Time: 13:24 8 09/03 12:15 Order name: Ptt, Activated; Complete Time: 13:24 8 09/03 12:15 Order name: Salicylate; Complete Time: 13:55 8 09/03 12:15 Order name: Urine Drug Screen; Complete Time: 13:[address] [facility] 09/03 12:15 Order name: Ketone, Serum; Complete Time: 13:55 8 09/03 12:16 Order name: Acetaminophen Level; Complete Time: 13:55 EDMS 09/03 12:16 Order name: Basic Metabolic Panel; Complete Time: 13:55 EDMS 09/03 12:35 Order name: Glucose, Ancillary Testing EDMI 09/03 12:45 Order name: Urine Dipstick-Ancillary EDMS 09/03 12:47 Order name: Urine --Ancillary (enter results); Complete Time: 13:24 bd 09/03 13:33 Order name: Manual Differential; Complete Time: 13:43 EDMS 09/03 13:45 Order name: Blood Culture Adult (2) [facility] 09/03 13:45 Order name: Procal; Complete Time: 15:[address] [facility] 09/03 13:45 Order name: Lactate; Complete Time: 15:19 8 09/03 13:46 Order name: ABG; Complete Time: 14:27 8 09/03 13:59 Order name: COVID-19 SARS RT PCR (Document "Date of Onset" if Symptomatic); Complete [facility] Time: 17:11 09/03 14:42 Order name: Glucose; Complete Time: 15:19 [facility] 09/03 14:45 Order name: Glucose, Ancillary Testing; Complete Time: 14:52 EDMS 09/03 15:19 Order name: BMP: 16:30; Complete Time: 17:16 jr8 09/03 15:53 Order name: Glucose, Ancillary Testing; Complete Time: 16:02 EDMS 09/03 16:57 Order name: Glucose, Ancillary Testing; Complete Time: 17:11 EDMS 09/03 17:17 Order name: ABG; Complete Time: 01:50 bd 09/03 17:37 Order name: Acetone Level EDMS 09/03 17:37 Order name: Acetone Level; Complete Time: 01:50 EDMS 09/03 17:37 Order name: Acetone Level EDMS 09/03 17:37 Order name: Acetone Level EDMS 09/03 17:37 Order name: Acetone Level EDMS 09/03 17:37 Order name: Acetone Level EDMS 09/03 17:37 Order name: Acetone Level EDMS 09/03 17:37 Order name: Basic Metabolic Panel EDMS 09/03 17:37 Order name: Basic Metabolic Panel; Complete Time: 01:50 EDMS 09/03 17:37 Order name: Basic Metabolic Panel EDMS 09/03 17:37 Order name: Basic Metabolic Panel EDMS 09/03 17:37 Order name: Basic Metabolic Panel EDMS 09/03 17:37 Order name: Basic Metabolic Panel EDMS 09/03 17:37 Order name: Basic Metabolic Panel EDMS 09/03 17:37 Order name: CBC with Automated Diff EDMS 09/03 17:37 Order name: CBC with Automated Diff EDMS 09/03 17:37 Order name: CBC with Automated Diff EDMS 09/03 17:37 Order name: CBC with Automated Diff EDMS 09/03 17:37 Order name: Magnesium EDMS 09/03 17:37 Order name: Magnesium EDMS 09/03 17:37 Order name: Magnesium EDMS 09/03 17:37 Order name: Magnesium EDMS 09/03 17:37 Order name: Phosphorus EDMS 09/03 17:37 Order name: Phosphorus EDMS 09/03 17:37 Order name: Phosphorus EDMS 09/03 17:37 Order name: Phosphorus EDMS 09/03 17:38 Order name: ABG Arterial Blood Gas EDMS 09/03 17:38 Order name: ABG Arterial Blood Gas EDMS 09/03 18:08 Order name: Glucose, Ancillary Testing; Complete Time: 01:50 EDMS 09/03 18:24 Order name: Lactate Sepsis 2 HR Follow-up; Complete Time: 01:50 EDMS 09/03 20:42 Order name: Glucose, Ancillary Testing; Complete Time: 01:50 EDMS 09/03 22:22 Order name: Glucose, Ancillary Testing; Complete Time: :50 EDMI 09/03 22:37 Order name: Glucose, Ancillary Testing; Complete Time: :50 EDMI 09/04 00:36 Order name: Glucose, Ancillary Testing; Complete Time: :50 EDMI 09/04 01:32 Order name: Glucose, Ancillary Testing; Complete Time: 01:50 [facility] 09/03 12:15 Order name: EKG; Complete Time: 12:[address] [facility] 09/03 12:15 Order name: EKG - Nurse/Tech; Complete Time: 12:41 8 09/03 12:15 Order name: IV Saline Lock; Complete Time: 12:41 8 09/03 12:15 Order name: Labs collected and sent; Complete Time: 12:[address] [facility] 09/03 12:15 Order name: Urine Dipstick-Ancillary (obtain specimen); Complete Time: 12:[address] [facility] 09/03 12:15 Order name: Glucose Level; Complete Time: 12:[address] [facility] 09/03 12:23 Order name: Hua; Complete Time: 12:37 8 09/03 12:23 Order name: Shaina Ervingaledarnell; Complete Time: 12:[address] [facility] 09/03 12:42 Order name: Labs - recollect needed: recollect all labs; Complete Time: 13:13 09/03 17:37 Order name: Clear Liquid [facility] 09/04 02:36 Order name: Glucose, Ancillary Testing [facility] 09/04 03:31 Order name: ABG Arterial Blood Gas EDMI 09/04 03:43 Order name: Glucose, Ancillary Testing [facility] 09/04 04:42 Order name: Urinalysis EDMI Administered Medications: 12:29 Not Given (Duplicate Order): Insulin Drip - (Insulin Regular Human 100 units, NS 0.9% jd3 100 ml) IV at calculated rate continuous; Standard concentration 1unit/ml; Dose for DKA is 0.1 units/kg/hr 12:37 Drug: NS 0.9% 1000 ml Route: IV; Rate: 1000 ml; Site: left antecubital; jd3 15:47 Follow up: IV Status: Completed infusion; IV Intake: 1000ml vg1 12:37 Drug: NS 0.9% 1000 ml Route: IV; Rate: 1000 ml; Site: left antecubital; jd3 15:47 Follow up: IV Status: Completed infusion; IV Intake: 1000ml vg1 13:15 Drug: Insulin Drip - (Insulin Regular Human 100 units, NS 0.9% 100 ml) {Co-Signature: vg1 jd3 (Guy Reyes RN).} Route: IV; Rate: calculated rate; Site: left antecubital; 14:07 Drug: Sodium Bicarbonate 1 amp Route: IVP; Site: right antecubital; jd3 15:46 Follow up: Response: No adverse reaction vg1 14:08 Drug: NS 0.9% 1000 ml Route: IV; Rate: 1000 ml; Site: right antecubital; jd3 15:46 Follow up: IV Status: Completed infusion; IV Intake: 1000ml vg1 14:38 Drug: Zosyn (piperacillin-tazobactam) 3.375 grams Route: IVPB; Infused Over: 60 mins; vg1 Site: right femoral; 15:46 Follow up: IV Status: Completed infusion; IV Intake: 100ml vg1 16:17 Drug: Ringers - Lactated Ringers Solution 1000 ml Route: IV; Rate: bolus; Site: left vg1 antecubital; Disposition: 17:18 Critical Care:. jr8 09/04 07:09 Co-signature as Attending Physician, Kenney Branham MD I agree with the assessment and rn plan of care. Attestation: The patient's history, exam findings, diagnostics, and a summary of any interventions or procedures was reviewed in detail with Hilton RESENDIZ. Disposition Summary: 09/03/21 15:35 Hospitalization Ordered Hospitalization Status: Inpatient Admission jr8 Provider: Keysha Garcia Condition: Fair jr8 Problem: new jr8 Symptoms: have improved jr8 Bed/Room Type: Standard 8 Location: Intensive Care Unit(09/04/21 02:45) cg Room Assignment: 3-(09/04/21 02:45) cg Diagnosis - Type 1 diabetes mellitus with ketoacidosis without coma jr8 - Dehydration jr8 - Drug abuse counseling and surveillance of drug abuser jr8 - Elevated white blood cell count jr8 Forms: - Medication Reconciliation Form jr8 - SBAR form jr8 Critical care time excluding procedures: 09/03 17:18 Critical care time: Bedside Care: 20 minutes, Consultation: 10 minutes, Family jr8 Intervention: 10 minutes. Total time: 40 minutes Signatures: Dispatcher [employer] EDEkaterina Bueno Roman, MD MD rn Roszak, Josh, PA PA jr8 Garcia, Cindy RN RN Guy Landry RN RN jd3 Marjorie Wasserman RN RN vg1 Rc Dunbar PA PA ej Jonathon Davies RN jd3 Corrections: (The following items were deleted from the chart) 12:23 12:15 Hua ordered. jr8 jr8 19:56 15:35 Intensive Care Unit jr8 cg 19:56 15:35 jr8 cg 09/04 02:45 09/03 19:56 [facility] ER HOLD cg cg 09/04 02:45 09/03 19:56 ERHOLD- cg cg
[2021-09-03] MEDS ORDERED: Ringers Lactate 1,000 ML IV ONE (16:02)
[2021-09-03 17:14] LABS: Potassium 3.8 mmol/L (3.5-5.1)
[2021-09-03 17:29] LABS: Arterial Blood Carboxyhemoglob 1.7 % (0-1.5); Blood Gas Oxyhemoglobin 95.2 % (94-97); Blood O2 Saturation 98.1 % (92-98.5)
--- NOTE | 2021-09-03 19:07 | P.HP ---
Certification for Inpatient Patient admitted to: Inpatient With expected LOS: >2 Midnights Patient will require the following post-hospital care: None Practitioner: I am a practitioner with admitting privileges, knowledge of patient current condition, hospital course, and medical plan of care. Services: Services provided to patient in accordance with Admission requirements found in Title 42 Section 412.3 of the Code of Federal Regulations Patient History Date of Service: 09/03/21 Reason for admission: DKA History of Present Illness: Patient is a 29yo who was admitted with DKA. Patient was severely acidotic. Patient was very lethargic and difficult to arouse. Patient was not really waking up well. She will be admitted to the intensive care unit on the insulin drip. We will try to grow aggressively control her blood sugars and correct her acidosis. Monitor her cardiac status closely. Continue monitoring electrolytes as well. Patient came to the hospital for further evaluation. Allergies cefaclor [From Ceclor] Adverse Reaction (Verified 09/04/21 00:25) Hives codeine Adverse Reaction (Verified 09/04/21 00:25) Hives/Rash - Past Medical/Surgical History -: Type 1 diabetes Past Surgical History: Patient denies surgical history - Family History Father Family History: Reviewed- Non-Contributory - Social History Smoking Status: Never smoker Alcohol use: No CD- Drugs: No Review of Systems 10-point ROS is otherwise unremarkable Physical Examination - Vital Signs Temperature: 99.9 F Blood Pressure: 140/80 Pulse: 120 Respirations: 40 Pulse Ox (%): 88 - Physical Exam General: Severe distress, Confused, Other (Lethargic) HEENT: Atraumatic, PERRLA, Mucous membr. moist/pink, EOMI, Sclerae nonicteric Neck: Supple, 2+ carotid pulse no bruit, No LAD, Without JVD or thyroid abnormality Respiratory: Clear to auscultation bilaterally, Normal air movement Cardiovascular: Other (Tachycardic) Gastrointestinal: Normal bowel sounds, Soft and benign, Non-distended, No tenderness Musculoskeletal: No clubbing, No swelling, No tenderness Integumentary: No rashes Neurological: Normal gait, Normal speech, Normal strength at 5/5 x4 extr, Normal tone, Sensation intact, Cranial nerves 3-12 intact, Normal affect Lymphatics: No axilla or inguinal lymphadenopathy - Studies Laboratory Data (last 24 hrs) 09/03/21 16:44: Sodium 141, Potassium 3.8, BUN 16, Creatinine 1.14, Glucose 396 H 09/03/21 14:48: Glucose 571 H* 09/03/21 13:01: PT 11.3, INR 0.98, APTT 32.3 09/03/21 13:01: WBC 46.50 H*, Hgb 15.1 H, Hct 49.5 H, Plt Count 356 09/03/21 13:01: Sodium 128 L, Potassium 4.8, BUN 18, Creatinine 1.64 H, Glucose 834 H*, Total Bilirubin 0.5, AST 24, ALT 35, Alkaline Phosphatase 139 H Assessment & Plan - Problems (Diagnosis) (1) DKA (diabetic ketoacidosis) Current Visit: Yes Status: Acute - Plan 1. Continue with insulin drip 2. Continue with aggressive IV hydration 3. Monitor hemoglobin A1c 4. Blood sugars every hour 5. Check BMP every 6 hours 6. Sleeve Wheel Maker regarding blood sugars 7. Repeat acetone level in a.m. 8. GI DVT prophylaxis Discharge Plan: Home Plan to discharge in: Greater than 2 days - Advance Directives Does patient have a Living Will: No Does patient have a Durable POA for Healthcare: No - Code Status/Comfort Care Code Status Assessed: Yes Code Status: Full Code Critical Care: No Time Spent Managing PTS Care (In Minutes): 45
[2021-09-03] MEDS ORDERED: ONDANSETRON 4 MG/2 ML VIAL ONE (20:08)
[2021-09-03] MEDS ORDERED: D5 0.45 NS 1,000 ML IV ONE (20:08)
[2021-09-03] MEDS ORDERED: ENOXAPARIN 40 MG/0.4 ML SQ ONE (20:08)
[2021-09-03] MEDS: ONDANSETRON 4 MG/2 ML VIAL IV PRN (20:16)
[2021-09-03] MEDS: NA CHLORIDE 0.9% 1,000 ML IV SCH ×2 (20:16→23:00)
[2021-09-03] MEDS: ENOXAPARIN 40 MG/0.4 ML SQ SCH (20:22)
[2021-09-03 20:50] LABS: BUN Blood Urea Nitrogen 13 mg/dL (7-18); Bicarbonate 8 mmol/L (21-32); Glucose Level 216 mg/dL (74-106); Potassium 3.6 mmol/L (3.5-5.1); Sodium Level 142 mmol/L (136-145)
[2021-09-03] MEDS: D5 0.45 NS 1,000 ML IV SCH (22:45)
[2021-09-04] MEDS: D5 0.45 NS 1,000 ML IV SCH (00:40)
[2021-09-04 00:41] VITALS: BMI 24.9
[2021-09-04 02:00] LABS: BUN Blood Urea Nitrogen 10 mg/dL (7-18); Glucose Level 300 mg/dL (74-106); Potassium 3.3 mmol/L (3.5-5.1); Sodium Level 143 mmol/L (136-145)
[2021-09-04 02:01] LABS: Bicarbonate 8 mmol/L (21-32)
[2021-09-04] MEDS ORDERED: D5.45NS W/KCL 20MEQ 1,000 ML IV ONE (02:46)
[2021-09-04] MEDS: D5.45NS W/KCL 20MEQ 1,000 ML IV SCH ×3 (02:56→16:20)
[2021-09-04] MEDS: NACHLORIDE 0.45% 1,000 ML with POTASSIUM CL 20 MEQ IV SCH ×6 (03:00→13:06)
[2021-09-04 03:28] LABS: Blood O2 Saturation 87.9 % (92-98.5)
[2021-09-04 04:39] LABS: Urine Appearance CLEAR (Clear); Urine Bilirubin NEGATIVE (Negative); Urine Blood 3+ (Negative); Urine Color YELLOW (Yellow); Urine Glucose 2+ (Negative); Urine Protein 1+ (Negative); Urine Urobilinogen 0.2 mg/dL (0.2-1.0); Urine pH 5.5 (5.0-7.0)
[2021-09-04 04:42] LABS: Urine Microscopic Reflex ORDER UMIC
[2021-09-04 05:03] LABS: Urine Bacteria <20 /HPF (<20)
[2021-09-04 05:16] VITALS: O2SAT 100
[2021-09-04 06:42] LABS: Absolute Lymphocytes (CBC) 2.3 K/uL (0.7-4.9); Hematocrit 39.7 % (36.0-45.0); Lymphocytes % 10.7 % (15.3-44.8); MPV 9.7 fL (7.6-11.3); RBC Red Blood Cell Count 4.49 M/uL (3.86-4.86)
[2021-09-04 07:05] LABS: BUN Blood Urea Nitrogen 9 mg/dL (7-18); Bicarbonate 12 mmol/L (21-32); Glucose Level 292 mg/dL (74-106); Sodium Level 143 mmol/L (136-145)
[2021-09-04 07:06] LABS: Potassium 2.7 mmol/L (3.5-5.1)
[2021-09-04 07:16] LABS: Magnesium 2.1 mg/dL (1.8-2.4)
[2021-09-04 07:18] LABS: Phosphorus 0.7 mg/dL (2.5-4.9)
[2021-09-04] MEDS: POTASSIUM PHOS IN 0.9 % NACL 15 MMOL/250 ML BAG IV SCH ×2 (07:58→10:15)
[2021-09-04] MEDS: ENOXAPARIN 40 MG/0.4 ML SQ SCH (07:59)
[2021-09-04] MEDS ORDERED: POTASSIUM PHOS 30 MM in NA CHLORIDE 0.9% 500 ML IV ONE (08:00)
[2021-09-04] MEDS ORDERED: KCL 20 MEQ/100 mL IVPB 20 MEQ/100 ML BAG IV SCH (08:00)
[2021-09-04 12:46] LABS: BUN Blood Urea Nitrogen 9 mg/dL (7-18); Bicarbonate 19 mmol/L (21-32); Glucose Level 175 mg/dL (74-106); Sodium Level 145 mmol/L (136-145)
[2021-09-04 12:49] LABS: Potassium 2.9 mmol/L (3.5-5.1)
[2021-09-04] MEDS: D5W 1,000 ML IV SCH ×2 (13:06→21:24)
[2021-09-04 13:34] LABS: Arterial Blood Carboxyhemoglob 1.4 % (0-1.5); Blood Gas Oxyhemoglobin 95.7 % (94-97); Blood O2 Saturation 98.5 % (92-98.5)
[2021-09-04 14:42] LABS: BUN Blood Urea Nitrogen 8 mg/dL (7-18); Bicarbonate 18 mmol/L (21-32); Glucose Level 118 mg/dL (74-106); Sodium Level 146 mmol/L (136-145)
[2021-09-04 14:51] LABS: Potassium 2.9 mmol/L (3.5-5.1)
[2021-09-04] MEDS: KCL 20 MEQ/100 mL IVPB 20 MEQ/100 ML BAG IV SCH ×2 (19:46→22:22)
[2021-09-04 21:31] LABS: BUN Blood Urea Nitrogen 6 mg/dL (7-18); Bicarbonate 21 mmol/L (21-32); Glucose Level 233 mg/dL (74-106); Sodium Level 140 mmol/L (136-145)
[2021-09-04 21:32] LABS: Potassium 2.9 mmol/L (3.5-5.1)
[2021-09-05] MEDS: KCL 20 MEQ/100 mL IVPB 20 MEQ/100 ML BAG IV SCH (00:15)
[2021-09-05] MEDS ORDERED: ACETAMINOPHEN 500 MG TAB PO PRN (03:38)
[2021-09-05] MEDS: D5W 1,000 ML IV SCH (05:07)
[2021-09-05 06:10] LABS: Absolute Lymphocytes (CBC) 3.1 K/uL (0.7-4.9); Lymphocytes % 24.3 % (15.3-44.8); MPV 9.8 fL (7.6-11.3); RBC Red Blood Cell Count 4.22 M/uL (3.86-4.86)
[2021-09-05 06:20] LABS: BUN Blood Urea Nitrogen 4 mg/dL (7-18); Bicarbonate 22 mmol/L (21-32); Glucose Level 160 mg/dL (74-106); Sodium Level 139 mmol/L (136-145)
[2021-09-05 06:27] LABS: Magnesium 1.8 mg/dL (1.8-2.4); Phosphorus 1.7 mg/dL (2.5-4.9)
[2021-09-05] MEDS ORDERED: KCL 20 MEQ/100 mL IVPB 20 MEQ/100 ML BAG IV SCH (07:00)
[2021-09-05] MEDS ORDERED: MAGNESIUM SULFATE 1 gm IVPB 1 GM/100 ML BAG IV ONE (07:13)
[2021-09-05] MEDS ORDERED: POTASSIUM PHOS IN 0.9 % NACL 15 MMOL/250 ML BAG IV ONE (07:17)
[2021-09-05] MEDS ORDERED: KCL 20 MEQ/100 mL IVPB 20 MEQ/100 ML BAG IV ONE (07:30)
--- NOTE | 2021-09-05 07:52 | EKG ---
Test Date: 2021-09-03 Test Time: 12:15:28 Collating Machine Operator: MBB MEASUREMENT RESULTS: Intervals: Rate: 96 MO: 126 QRSD: 76 QT: 386 QTc: 487 [place]: P: 63 MO: 126 QRS: 63 T: 19 INTERPRETIVE STATEMENTS: Normal sinus rhythm T wave abnormality, consider inferior ischemia Abnormal ECG No previous ECG available for comparison Electronically Signed On 09-05-21 07:46:13 GREEN BUILDING ENERGY ENGINEER by Yehuda Hobbs
--- NOTE | 2021-09-05 07:52 | EKG ---
Test Date: 2021-09-03 Test Time: 12:15:53 Interactive Media Project Manager: GENO MEASUREMENT RESULTS: Intervals: Rate: 96 NC: 122 QRSD: 80 QT: 380 QTc: 480 [place]: P: 62 NC: 122 QRS: 56 T: 54 INTERPRETIVE STATEMENTS: Normal sinus rhythm Nonspecific ST abnormality Prolonged QT Abnormal ECG Compared to ECG 09/03/2021 12:15:28 ST (T wave) deviation now present Prolonged QT interval now present T-wave abnormality no longer present Possible ischemia no longer present Electronically Signed On 09-05-21 07:46:12 EXECUTIVE DIRECTOR GLOBAL BRAND MARKETING by Yehuda Hobbs
[2021-09-05] MEDS ORDERED: INSULIN GLARGINE 100 UNIT/ML SQ SCH (08:00)
[2021-09-05] MEDS: ONDANSETRON 4 MG/2 ML VIAL IV PRN (08:19)
[2021-09-05] MEDS: ENOXAPARIN 40 MG/0.4 ML SQ SCH (08:20)
[2021-09-05] MEDS ORDERED: INFLUENZA VACCINE (for 6+ mo) 0.5 ML DOSE IMVAC ONE (10:00)
[2021-09-05] MEDS ORDERED: PNEUMOCOCCAL VACCINE 0.5 ML IMVAC ONE (10:00)
--- NOTE | 2021-09-05 10:14 | P.PN ---
Subjective Date of Service: 09/04/21 Subjective: Improving Review of Systems 10-point ROS is otherwise unremarkable Physical Examination - Vital Signs Temperature: 99.9 F Blood Pressure: 140/80 Pulse: 120 Respirations: 40 Pulse Ox (%): 88 - Physical Exam General: Alert, In no apparent distress HEENT: Atraumatic, PERRLA, EOMI Neck: Supple, JVD not distended Respiratory: Clear to auscultation bilaterally, Normal air movement Cardiovascular: Regular rate/rhythm, Normal S1 S2 Gastrointestinal: Normal bowel sounds, No tenderness Musculoskeletal: No tenderness Integumentary: No rashes Neurological: Normal speech, Normal tone, Normal affect Lymphatics: No axilla or inguinal lymphadenopathy - Studies Medications List Reviewed: Yes Assessment & Plan - Problems (Diagnosis) (1) DKA (diabetic ketoacidosis) Current Visit: Yes Status: Acute - Plan Patient continues to improve. Continue with plan of care as mentioned below: Few 1. Continue with insulin drip 2. Continue with aggressive IV hydration 3. Monitor hemoglobin A1c 4. Blood sugars every hour 5. Check BMP every 6 hours 6. High Lift Driver regarding blood sugars 7. Repeat acetone level in a.m. 8. GI DVT prophylaxis Discharge Plan: Home Plan to discharge in: Greater than 2 days - Advance Directives Does patient have a Living Will: No Does patient have a Durable POA for Healthcare: No - Code Status/Comfort Care Code Status: Full Code Critical Care: No Time Spent Managing PTS Care (In Minutes): 35
--- NOTE | 2021-09-05 10:21 | P.DS ---
Discharge Date: 09/05/21 Disposition: ROUTINE DISCHARGE Discharge Condition: GOOD Reason for Admission: DKA - Problems (1) DKA (diabetic ketoacidosis) Current Visit: Yes Status: Acute Brief History of Present Illness: Patient is a 29yo who was admitted with DKA. Patient was severely acidotic. Patient was very lethargic and difficult to arouse. Patient was not really waking up well. She will be admitted to the intensive care unit on the insulin drip. We will try to grow aggressively control her blood sugars and correct her acidosis. Monitor her cardiac status closely. Continue monitoring electrolytes as well. Patient came to the hospital for further evaluation. Hospital Course: Patient continues to improve. Blood sugars are stable. Acidosis has corrected. Hemoglobin A1c is considerably elevated. He had patient needs to be compliant with taking her insulin. She has not been taking good care of her blood sugars. Hopefully, going forward she will do better as she has a high risk of having multiorgan disease. Vital Signs/Physical Exam: Temp Pulse Resp BP Pulse Ox 99.9 F 120 H 40 H 140/80 88 L 09/05/21 10:13 09/05/21 10:13 09/05/21 10:13 09/05/21 10:13 09/05/21 10:13 General: Alert, In no apparent distress, Oriented x3 Laboratory Data at Discharge: WBC 12.60 K/uL (4.3-10.9) H D 09/05/21 05:00 Hgb 12.9 g/dL (12.0-15.0) 09/05/21 05:00 Hct 37.0 % (36.0-45.0) 09/05/21 05:00 Plt Count 209 K/uL (152-406) 09/05/21 05:00 PT 11.3 SECONDS (9.5-12.5) 09/03/21 13:01 INR 0.98 09/03/21 13:01 APTT 32.3 SECONDS (24.3-36.9) 09/03/21 13:01 Sodium 139 mmol/L (136-145) 09/05/21 05:00 Potassium 3.0 mmol/L (3.5-5.1) L 09/05/21 05:00 BUN 4 mg/dL (7-18) L 09/05/21 05:00 Creatinine 0.58 mg/dL (0.55-1.3) 09/05/21 05:00 Glucose 160 mg/dL (74-106) H 09/05/21 05:00 Phosphorus 1.7 mg/dL (2.5-4.9) L D 09/05/21 05:00 Magnesium 1.8 mg/dL (1.8-2.4) 09/05/21 05:00 Total Bilirubin 0.5 mg/dL (0.2-1.0) 09/03/21 13:01 AST 24 U/L (15-37) 09/03/21 13:01 ALT 35 U/L (12-78) 09/03/21 13:01 Alkaline Phosphatase 139 U/L (45-117) H 09/03/21 13:01 Triglycerides 167 mg/dL (<150) H 09/05/21 05:00 Cholesterol 238 mg/dL (<200) H 09/05/21 05:00 HDL Cholesterol 47 mg/dL (40-60) 09/05/21 05:00 Cholesterol/HDL Ratio 5.06 09/05/21 05:00 Home Medications: Insulin Detemir [Levemir] 40 units SQ Q12H #2 vial 09/05/21 New Medications: Insulin Detemir [Levemir] 40 units SQ Q12H #2 vial Physician Discharge Instructions: DC IV and DC home Follow-up with PCP in 1 to [address] Garcia at [phone] if any questions regarding hospital stay Please call nursing station at [phone] if any nursing or medication questions Return to the emergency room if symptoms worsen Diet: ADA Activity: Fall precautions Followup: MORA VELAZCO [Primary Care Provider] - Time spent managing pt's care (in minutes): 35
[2021-09-05] MEDS ORDERED: GLUCAGON 1 MG/VIAL IM PRN (11:55)
[2021-09-05] MEDS ORDERED: D50W 25 GM/50 ML SYRINGE IV PRN (11:55)
[2021-09-05] MEDS ORDERED: INSULIN -REGULAR HUMAN 50 UNIT/0.5 ML ML SQ SCH (11:56)
[2021-09-05 13:09] VITALS: BP 116/76; TEMP 97.9
== END 2021-09-05 14:30 | disposition home or self-care (01) | DRG 639 ==
LOC: ER 12:05 → ERHOLD 17:22 → 3RD-ICU 09-04 04:24
PROVIDERS: ADMIT Hospitalist; ATTEND Hospitalist
PROC: 06HY33Z Insertion of Infusion Device into Lower Vein, Percutaneous Approach (ICD-10-PCS; principal; 2021-09-03)
DX: E10.10 Type 1 diabetes mellitus with ketoacidosis without coma (principal); F17.210 Nicotine dependence, cigarettes, uncomplicated; E86.0 Dehydration; D72.829 Elevated white blood cell count, unspecified; F19.10 Other psychoactive substance abuse, uncomplicated; Z71.51 Drug abuse counseling and surveillance of drug abuser; Z88.5 Allergy status to narcotic agent; Z79.4 Long term (current) use of insulin; Z20.822 Contact with and (suspected) exposure to COVID-19
CPT/HCPCS: 36415; 80048; 80061; 80076; 80307; 80320; 80329; 81003; 81015; 81025; 82010; 82805; 82947; 83036; 83605; 83735; 84100; 84132; 84145; 85025; 85610; 85730; 87040; 93005; 96361; 96365; 96375; 99285; J1650; J2405; J2543; J3475; J3480; J7030; J7040; J7050; J7120; J7799; U0003

== ENCOUNTER 2022-04-07 14:34 | Inpatient (IN) | payer SELFPAY ==
[2022-04-07] MEDS ORDERED: NA CHLORIDE 0.9% 50 ML ONE (15:17)
[2022-04-07] MEDS ORDERED: CEFTRIAXONE 1000 MG/VIAL ONE (15:17)
[2022-04-07] MEDS ORDERED: NA CHLORIDE 0.9% 2,000 ML ONE (15:17)
[2022-04-07] MEDS ORDERED: PROMETHAZINE INJ 25 MG/ML AMP ONE (15:17)
[2022-04-07 15:23] LABS: Absolute Lymphocytes (CBC) 1.3 K/uL (0.7-4.9); Hematocrit 55.8 % (36.0-45.0); Lymphocytes % 8.2 % (15.3-44.8); MCV 94.9 fL (80-100); MPV 10.6 fL (7.6-11.3); RBC Red Blood Cell Count 5.88 M/uL (3.86-4.86)
[2022-04-07 15:27] LABS: Protime INR 1.03
[2022-04-07 15:36] LABS: ALT/SGPT 29 U/L (12-78); AST/SGOT 13 U/L (15-37); Albumin 4.7 g/dL (3.4-5.0); Alkaline Phosphatase 116 U/L (45-117); BUN Blood Urea Nitrogen 13 mg/dL (7-18); Bilirubin Total 0.4 mg/dL (0.2-1.0); Glomerular Filtration Rate 67 ml/min (=/>90); Potassium 4.4 mmol/L (3.5-5.1); Protein, Total 10.3 g/dL (6.4-8.2); Sodium Level 128 mmol/L (136-145)
[2022-04-07 15:37] LABS: Bilirubin Direct < 0.1 mg/dL (0-0.2)
[2022-04-07 15:38] LABS: Bicarbonate < 8 mmol/L (21-32); Glucose Level 467 mg/dL (74-106)
[2022-04-07 15:42] LABS: SARS-CoV-2 Antigen Rapid Res Negative (Negative)
--- NOTE | 2022-04-07 15:56 | EDPHYS ---
Physician Documentation [facility] Name: Maddie Renteria Age: 21 yrs Sex: Female : 2000 Arrival Date: 04/07/2022 Time: 14:43 Bed 6 Private MD: ED Physician Saqib Chaparro HPI: 04/07 15:24 This 21 yrs old Female presents to ER via EMS with complaints of Shortness Of snw Breath, High Blood Sugar. 15:24 The patient has shortness of breath at rest. Onset: The symptoms/episode began/occurred snw 2 day(s) ago. Duration: The symptoms are continuous, and are steadily getting worse. Associated signs and symptoms: The patient has no apparent associated signs or symptoms. Severity of symptoms: At their worst the symptoms were moderate. The patient has experienced similar episodes in the past. The patient has not recently seen a physician. 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 - Social history:: Smoking status: Patient denies any tobacco usage or history of. ROS: 15:23 Eyes: Negative for injury, pain, redness, and discharge, ENT: Negative for injury, snw pain, and discharge, Neck: Negative for injury, pain, and swelling, Cardiovascular: Negative for chest pain, palpitations, and edema, Respiratory: Negative for shortness of breath, cough, wheezing, and pleuritic chest pain. 15:23 Back: Negative for injury and pain, : Negative for injury, bleeding, discharge, and swelling, MS/Extremity: Negative for injury and deformity, Neuro: Negative for headache, weakness, numbness, tingling, and seizure. 15:23 MS/Extremity: Negative for injury and deformity, Skin: Negative for injury, rash, and discoloration. 15:23 Constitutional: Positive for body aches, malaise, poor PO intake. 15:23 Abdomen/GI: Positive for abdominal pain, nausea. Exam: 15:21 Head/Face: Normocephalic, atraumatic. Eyes: Pupils equal round and reactive to light, snw extra-ocular motions intact. Lids and lashes normal. Conjunctiva and sclera are non-icteric and not injected. Cornea within normal limits. Periorbital areas with no swelling, redness, or edema. 15:21 Chest/axilla: Normal chest wall appearance and motion. Nontender with no deformity. No lesions are appreciated. 15:21 Back: No spinal tenderness. No costovertebral tenderness. Full range of motion. MS/ Extremity: Pulses equal, no cyanosis. Neurovascular intact. Full, normal range of motion. Neuro: Awake and alert, GCS 15, oriented to person, place, time, and situation. Cranial nerves II-XII grossly intact. Motor strength 5/5 in all extremities. Sensory grossly intact. Cerebellar exam normal. Normal gait. Psych: Awake, alert, with orientation to person, place and time. Behavior, mood, and affect are within normal limits. 15:21 Constitutional: The patient appears awake, anxious, listless, uncomfortable. 15:21 ENT: Mouth: Oral mucosa: dry, Voice: is normal. 15:21 Cardiovascular: Rate: tachycardic, Heart sounds: normal. 15:21 Respiratory: the patient does not display signs of respiratory distress, Respirations: shallow respirations, tachypnea, Breath sounds: are clear throughout. 15:21 Abdomen/GI: Inspection: abdomen appears normal, Bowel sounds: normal, in all quadrants, Palpation: mild abdominal tenderness, in all quadrants. 15:21 Skin: Appearance: normal except for affected area, Moisture: dry, Turgor: is poor. Vital Signs: 14:45 BP 150 / 90; Pulse 138; Resp 24; Pulse Ox 100% on R/A; Weight 67.13 kg; Height 5 ft. 4 ss in. (162.56 cm); Pain 8/10; 15:49 BP 164 / 105; Pulse 130; Resp 22; Temp 98.8(TE); Pulse Ox 100% ; vg1 16:00 BP 169 / 100; Pulse 130; Resp 20; Pulse Ox 100% on R/A; vg1 16:30 BP 167 / 97; Pulse 135; Resp 21; Pulse Ox 100% on R/A; vg1 17:00 BP 162 / 97; Pulse 135; Resp 22; Pulse Ox 100% on R/A; vg1 17:02 BP 157 / 92; Pulse 135; Resp 20; Pulse Ox 100% on R/A; vg1 17:30 BP 135 / 86; Pulse 135; Resp 20; Pulse Ox 100% on R/A; vg1 18:00 BP 122 / 77; Pulse 135; Resp 21; Pulse Ox 100% on R/A; vg1 18:30 BP 112 / 72; Pulse 135; Resp 21; Pulse Ox 100% on R/A; vg1 14:45 Body Mass Index 25.40 (67.13 kg, 162.56 cm) ss MDM: 14:53 Patient medically screened. snw 15:55 Data reviewed: vital signs, nurses notes. Data interpreted: Pulse oximetry: on room air snw is 100 %. Interpretation: normal. Counseling: I had a detailed discussion with the patient and/or guardian regarding: the historical points, exam findings, and any diagnostic results supporting the discharge/admit diagnosis, the presence of at least one elevated blood pressure reading (>120/80) during this emergency department visit, lab results, the need for further work-up and treatment in the hospital. Physician consultation: Keysha Garcia MD was called at 15:40, was contacted at 15:40, regarding admission, to the ICU. 04/07 14:53 Order name: Acetaminophen; Complete Time: 15:53 snw 04/07 14:53 Order name: CBC with Diff; Complete Time: 15:35 snw 04/07 14:53 Order name: Hepatic Function; Complete Time: 15:53 snw 04/07 14:53 Order name: PT-INR; Complete Time: 15:30 snw 04/07 14:53 Order name: Ptt, Activated; Complete Time: 15:30 snw 04/07 14:53 Order name: Urine Drug Screen; Complete Time: 17:23 snw 04/07 14:53 Order name: CMP; Complete Time: 15:53 snw 04/07 14:53 Order name: Acetone, Serum; Complete Time: 15:53 snw 04/07 14:53 Order name: SARS RAPID; Complete Time: 15:45 snw 04/07 14:53 Order name: Blood Culture Adult (2); Complete Time: 16:00 snw 04/07 16:53 Order name: Glucose, Ancillary Testing; Complete Time: 16:56 EDMS 04/07 17:00 Order name: Urine Dipstick-Ancillary; Complete Time: 17:01 EDMS 04/07 18:05 Order name: Glucose, Ancillary Testing; Complete Time: 18:29 EDMS 04/07 18:37 Order name: Acetone Level EDMS 04/07 18:37 Order name: Acetone Level EDMS 04/07 18:37 Order name: Acetone Level; Complete Time: 23:22 EDMS 04/07 18:37 Order name: Acetone Level; Complete Time: 15:23 EDMS 04/07 18:37 Order name: Basic Metabolic Panel EDMS 04/07 18:37 Order name: Basic Metabolic Panel EDMS 04/07 18:37 Order name: Basic Metabolic Panel; Complete Time: 23:22 EDMS 04/07 18:37 Order name: Basic Metabolic Panel; Complete Time: 15:23 EDMS 04/07 18:37 Order name: CBC with Automated Diff EDMS 04/07 18:37 Order name: CBC with Automated Diff; Complete Time: 15:23 EDMS 04/07 18:37 Order name: CBC with Automated Diff EDMS 04/07 18:37 Order name: CBC with Automated Diff EDMS 04/07 18:37 Order name: Magnesium EDMS 04/07 18:38 Order name: Magnesium EDMS 04/07 18:38 Order name: Magnesium EDMS 04/07 18:38 Order name: Magnesium EDMS 04/07 18:38 Order name: Osmolality, Serum EDMS 04/07 18:38 Order name: Osmolality, Serum EDMS 04/07 18:38 Order name: Osmolality, Serum EDMS 04/07 18:38 Order name: Osmolality, Serum EDMS 04/07 18:38 Order name: Phosphorus EDMS 04/07 18:38 Order name: Phosphorus EDMS 04/07 18:38 Order name: Phosphorus EDMS 04/07 18:38 Order name: Phosphorus EDMS 14 19:06 Order name: Glucose, Ancillary Testing; Complete Time: 19:09 EDMS 14 19:59 Order name: Glucose, Ancillary Testing; Complete Time: 20:03 EDMS 14 21:23 Order name: Glucose, Ancillary Testing; Complete Time: 21:25 EDMS 14 22:05 Order name: Glucose, Ancillary Testing; Complete Time: 22:06 EDMS 14 23:04 Order name: Glucose, Ancillary Testing; Complete Time: 23:09 EDMS 04/08 00:16 Order name: Glucose, Ancillary Testing; Complete Time: 00:20 EDMS 04/08 01:17 Order name: Glucose, Ancillary Testing; Complete Time: 01:27 EDMS 04/08 02:06 Order name: Glucose, Ancillary Testing; Complete Time: 15:23 EDMS 04/08 03:05 Order name: Glucose, Ancillary Testing; Complete Time: 15:23 EDMS 04/08 03:29 Order name: Phosphorus; Complete Time: 15:23 EDMS 04/08 03:29 Order name: Magnesium; Complete Time: 15:23 EDMS 04/08 04:02 Order name: Glucose, Ancillary Testing; Complete Time: 15:23 EDMS 04/08 04:58 Order name: Glucose, Ancillary Testing; Complete Time: 15:23 EDMS 04/08 06:14 Order name: Glucose, Ancillary Testing; Complete Time: 15:23 EDMS 04/08 07:00 Order name: Glucose, Ancillary Testing; Complete Time: 15:23 EDMS 04/08 08:04 Order name: Glucose, Ancillary Testing; Complete Time: 15:23 EDMS 04/08 09:33 Order name: Glucose, Ancillary Testing; Complete Time: 15:23 EDMS 04/08 10:53 Order name: Glucose, Ancillary Testing; Complete Time: 15:23 EDMS 04/08 11:56 Order name: Glucose, Ancillary Testing; Complete Time: 15:23 EDMS 04/08 12:50 Order name: Glucose, Ancillary Testing; Complete Time: 15:23 EDMS 04/08 14:02 Order name: Glucose, Ancillary Testing; Complete Time: 15:23 EDMS 04/08 14:44 Order name: Glucose, Ancillary Testing; Complete Time: 15:23 EDMS 04/08 15:55 Order name: Glucose, Ancillary Testing; Complete Time: 16:00 EDMS 04/08 17:43 Order name: Glucose, Ancillary Testing; Complete Time: 18:01 EDMS 04/07 14:53 Order name: EKG; Complete Time: 14:55 snw 04/07 14:53 Order name: EKG - Nurse/Tech; Complete Time: 15:54 snw 04/07 14:53 Order name: IV Saline Lock; Complete Time: 15:02 snw 04/07 14:53 Order name: Labs collected and sent; Complete Time: 15:02 snw 04/07 14:53 Order name: Urine Dipstick-Ancillary (obtain specimen); Complete Time: 17:04 snw 04/07 14:53 Order name: Urine Test (obtain specimen); Complete Time: 17:04 snw 04/07 18:37 Order name: Clear Liquid EDMS 04/08 17:45 Order name: Glucose, Ancillary Testing; Complete Time: 18:01 EDMS 04/08 19:03 Order name: Basic Metabolic Panel; Complete Time: 19:05 EDMS 04/08 19:03 Order name: Phosphorus; Complete Time: 19:05 EDMS 04/08 19:03 Order name: Magnesium; Complete Time: 19:05 EDMS 04/08 19:29 Order name: Glucose, Ancillary Testing; Complete Time: 19:36 EDMS 04/08 20:15 Order name: Potassium; Complete Time: 20:27 EDMS 04/08 20:19 Order name: Phosphorus; Complete Time: 20:27 EDMS EC:45 Rate is 137 beats/min. Rhythm is regular. QRS [place] is Normal. CO interval is normal. QT snw interval is normal. No Q waves. T waves are Normal. Clinical impression: Sinus tachycardia. Administered Medications: 15:15 Drug: NS 0.9% (30 ml/kg) 30 ml/kg Route: IV; Rate: bolus; Site: right antecubital; vg1 17:04 Follow up: IV Status: Completed infusion; IV Intake: 1000ml vg1 15:15 Drug: Phenergan (promethazine) 12.5 mg Route: IVP; Site: right antecubital; vg1 17:04 Follow up: Response: No adverse reaction; Marked relief of symptoms vg1 15:45 Drug: Insulin Drip - (Insulin Regular Human 100 units, NS 0.9% 100 ml) {Co-Signature: vg1 jh6 (Delisa Murillo RN).} Route: IV; Rate: calculated rate; Site: left antecubital; 15:48 Drug: Rocephin (cefTRIAXone) 1 grams Route: IV; Rate: calculated rate; Site: right vg1 antecubital; 17:04 Follow up: IV Status: Completed infusion; IV Intake: 50ml vg1 Disposition Summary: 04/07/22 15:55 Hospitalization Ordered Hospitalization Status: Inpatient Admission snw Provider: Garcia, Mohammad snw Condition: Stable snw Problem: an acute exacerbation snw Symptoms: are unchanged snw Bed/Room Type: Standard snw Location: Intensive Care Unit(04/08/22 19:50) Room Assignment: 2-(04/08/22 19:50) Diagnosis - Diabetes mellitus due to underlying condition with ketoacidosis without coma snw Forms: - Medication Reconciliation Form snw - SBAR form snw Signatures: Dispatcher [employer] EDMel Ghosh RN RN Keira Markham RN RN Angy Morgan, ASSISTANT HEALTH EDUCATOR-C ASSISTANT HEALTH EDUCATOR-Csnw Fatmata Carbajal RN RN Syd Li, ASSISTANT HEALTH EDUCATOR-C ASSISTANT HEALTH EDUCATOR-Cla1 Marjorie Wasserman RN RN vg1 Delisa Murillo RN jh6 Corrections: (The following items were deleted from the chart) 19:24 15:55 Intensive Care Unit snw dw 19:24 15:55 snw dw 04/08 19:50 08 19:24 [facility] ER HOLD dw 04/08 19:50 04/07 19:24 ERHOLD- dw
--- NOTE | 2022-04-07 15:56 | ER ---
Nurse's Notes [facility] Name: Maddie Renteria Age: 21 yrs Sex: Female : 2000 Arrival Date: 04/07/2022 Time: 14:43 Bed 6 Private MD: Diagnosis: Diabetes mellitus due to underlying condition with ketoacidosis without coma Presentation: 04/07 14:45 Chief complaint: Patient states: shortness of breath and not feeling well since ss yesterday. Pt reports that she has a hx of DM, but has not taken her medication in 2 days. Coronavirus screen: Client denies travel out of the [place] in the last 14 days. Ebola Screen: Patient denies exposure to infectious person. Patient denies travel to an Ebola-affected area in the 21 days before illness onset. Initial Sepsis Screen: Does the patient meet any 2 criteria? No. Patient's initial sepsis screen is negative. Does the patient have a suspected source of infection? No. Patient's initial sepsis screen is negative. Risk Assessment: Do you want to hurt yourself or someone else? Patient reports no desire to harm self or others. Onset of symptoms was April 06, 2022. 14:45 Method Of Arrival: EMS: [facility] 14:45 Acuity: TANIYA 2 ss Triage Assessment: 04/08 20:39 Respiratory: the patient has mild shortness of breath. 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 - Social history:: Smoking status: Patient denies any tobacco usage or history of. Screenin:00 Abuse screen: Denies threats or abuse. Nutritional screening: No deficits noted. vg1 Tuberculosis screening: No symptoms or risk factors identified. Fall Risk No fall in past 12 months (0 pts). No secondary diagnosis (0 pts). IV access (20 points). Ambulatory Aid- None/Bed Rest/Nurse Assist (0 pts). Gait- Normal/Bed Rest/Wheelchair (0 pts) Mental Status- Oriented to own ability (0 pts). Total Hernandes Fall Scale indicates No Risk (0-24 pts). Assessment: 15:00 General: Appears uncomfortable, Behavior is cooperative. Pain: Complains of pain in vg1 epigastric area and right upper quadrant Pain currently is 8 out of 10 on a pain scale. Pain began intermittent x 7 months. Neuro: Level of Consciousness is awake, alert, obeys commands, Oriented to person, place, time, situation. Cardiovascular: Patient's skin is warm and dry. Rhythm is sinus tachycardia. Respiratory: Airway is patent Respiratory effort is even, unlabored, Respiratory pattern is tachypnea Breath sounds are clear bilaterally. GI: Abdomen is flat, Reports nausea, vomiting. : No signs and/or symptoms were reported regarding the genitourinary system. EENT: No signs and/or symptoms were reported regarding the EENT system. Derm: Skin is intact, Skin is. Musculoskeletal: Circulation, motion, and sensation intact. Reports pain in right leg and left leg. 15:00 General: Smells of ketones. vg1 15:10 Reassessment: received VO from Cathy INTERNET MARKETING EXECUTIVE to administer Phenergan 12.5 mg IVP x1. vg1 15:45 Reassessment: Insulin drip set for 7 units/hr. vg1 15:50 Reassessment: Dr Garcia at bedside. vg1 16:00 Reassessment: Patient appears in no apparent distress at this time. No changes from vg1 previously documented assessment. Patient and/or family updated on plan of care and expected duration. Pain level reassessed. Pt appears to be drowsy, alert to verbal stimuli, oriented x3. 16:45 Reassessment: BG 327, Angy INTERNET MARKETING EXECUTIVE notified, continued insulin drip at 7 units/hr. vg1 17:00 Reassessment: Patient appears in no apparent distress at this time. No changes from vg1 previously documented assessment. Patient and/or family updated on plan of care and expected duration. Pain level reassessed. 17:45 Reassessment: BG 255, Angy INTERNET MARKETING EXECUTIVE notified, received VO to decrease insulin drip to 5 vg1 units/hr. 18:00 Reassessment: Patient appears in no apparent distress at this time. No changes from vg1 previously documented assessment. Patient and/or family updated on plan of care and expected duration. Pain level reassessed. 18:45 Reassessment: BG 224, Angy INTERNET MARKETING EXECUTIVE notified. decreased insulin drip to 3 units/hr per vg1 protocol. Vital Signs: 14:45 BP 150 / 90; Pulse 138; Resp 24; Pulse Ox 100% on R/A; Weight 67.13 kg; Height 5 ft. 4 ss in. (162.56 cm); Pain 8/10; 15:49 BP 164 / 105; Pulse 130; Resp 22; Temp 98.8(TE); Pulse Ox 100% ; vg1 16:00 BP 169 / 100; Pulse 130; Resp 20; Pulse Ox 100% on R/A; vg1 16:30 BP 167 / 97; Pulse 135; Resp 21; Pulse Ox 100% on R/A; vg1 17:00 BP 162 / 97; Pulse 135; Resp 22; Pulse Ox 100% on R/A; vg1 17:02 BP 157 / 92; Pulse 135; Resp 20; Pulse Ox 100% on R/A; vg1 17:30 BP 135 / 86; Pulse 135; Resp 20; Pulse Ox 100% on R/A; vg1 18:00 BP 122 / 77; Pulse 135; Resp 21; Pulse Ox 100% on R/A; vg1 18:30 BP 112 / 72; Pulse 135; Resp 21; Pulse Ox 100% on R/A; vg1 14:45 Body Mass Index 25.40 (67.13 kg, 162.56 cm) ED Course: 14:43 Patient arrived in ED. vg1 14:46 Tim Barnard PA is PHCP. [facility] 14:46 Saqib Chaparro MD is Attending Physician. [facility] 14:47 Triage completed. 14:47 PHCP role handed off by Tim Barnard PA snw 14:47 Angy Morgan FNP-C is PHCP. snw 14:47 Arm band placed on right wrist. ss 14:55 Inserted saline lock: 20 gauge in right antecubital area, using aseptic technique. vg1 Blood collected. 14:55 Initial lab(s) drawn, by me, sent to lab. First set of blood cultures drawn Right FA. vg1 15:00 Patient has correct armband on for positive identification. Placed in gown. Bed in low vg1 position. Call light in reach. Side rails up X 1. Client placed on continuous cardiac and pulse oximetry monitoring. NIBP monitoring applied. 15:01 Marjorie Wasserman RN is Primary Nurse. vg1 15:55 Keysha Garcia MD is Hospitalizing Provider. snw 19:11 Primary Nurse role handed off by Marjorie Wasserman RN tw5 19:11 Herbie Adenike is Primary Nurse. 5 04/08 20:37 Report given to Salome Castro RN. bm7 20:37 No provider procedures requiring assistance completed. Patient admitted, IV remains in bm7 place. Administered Medications: 04/07 15:15 Drug: NS 0.9% (30 ml/kg) 30 ml/kg Route: IV; Rate: bolus; Site: right antecubital; vg1 17:04 Follow up: IV Status: Completed infusion; IV Intake: 1000ml vg1 15:15 Drug: Phenergan (promethazine) 12.5 mg Route: IVP; Site: right antecubital; vg1 17:04 Follow up: Response: No adverse reaction; Marked relief of symptoms vg1 15:45 Drug: Insulin Drip - (Insulin Regular Human 100 units, NS 0.9% 100 ml) {Co-Signature: jimena lois (Delisa Murillo RN).} Route: IV; Rate: calculated rate; Site: left antecubital; 15:48 Drug: Rocephin (cefTRIAXone) 1 grams Route: IV; Rate: calculated rate; Site: right vg1 antecubital; 17:04 Follow up: IV Status: Completed infusion; IV Intake: 50ml vg1 Medication: 15:25 VIS not applicable for this client. vg1 Intake: 17:04 IV: 1000ml; Total: 1000ml. vg1 17:04 IV: 50ml; Total: 1050ml. vg1 Outcome: 15:55 Decision to Hospitalize by Provider. [facility] 04/08 20:37 Admitted to ICU accompanied by tech, via stretcher, room 3, on monitor, with chart, bm7 Report called to Salome Castro RN Condition: stable Discharge instructions given to patient, family, Instructed on the need for admit, Demonstrated understanding of 21:13 Patient left the ED. bb Signatures: Angy Morgan, JOIEC ELECTRICIAN OFFICE-CsnTim Guillen PA PA jmm Ballard, Brenda, RN RN bb Smirch, Shelby, RN RN ss Garcia, Victoria, RN RN vg1 Rosalind Jauregui RN RN bm7 Adenike Stoner tw5 Delisa Murillo RN jh6
[2022-04-07 17:00] LABS: Urine Blood 1+ (Negative); Urine Glucose 2+ (Negative); Urine Protein 3+ (Negative); Urine Specific Gravity >=1.030 (1.005-1.030); Urine pH 5.5 (5.0-7.0)
[2022-04-07 17:21] LABS: Barbiturates NEGATIVE (NEGATIVE); Benzodiazepines NEGATIVE (NEGATIVE); Cocaine POSITIVE (NEGATIVE); METHAMPHETAM NEGATIVE (NEGATIVE); Methadone NEGATIVE (NEGATIVE); Opiates NEGATIVE (NEGATIVE); Phencyclidine NEGATIVE (NEGATIVE); THC Cannibis POSITIVE (NEGATIVE)
[2022-04-07] MEDS ORDERED: ONDANSETRON 4 MG/2 ML VIAL IV PRN (18:33)
--- NOTE | 2022-04-07 18:37 | P.HP ---
Certification for Inpatient Patient admitted to: Inpatient With expected LOS: >2 Midnights Patient will require the following post-hospital care: None Practitioner: I am a practitioner with admitting privileges, knowledge of patient current condition, hospital course, and medical plan of care. Services: Services provided to patient in accordance with Admission requirements found in Title 42 Section 412.3 of the Code of Federal Regulations Patient History Date of Service: 04/07/22 Reason for admission: DKA History of Present Illness: Patient is a 21-year-old female who came to the hospital with diabetic ketoacidosis. She is well known to me from multiple prior admissions in the past. Patient had gone out of town for the last few days and was not taking her insulin. Patient came into the emergency room and was admitted to the hospital because she was in diabetic ketoacidosis. Patient started on IV fluids and insulin drip. Patient will be admitted to the hospital for further treatment. Allergies cefaclor [From Ceclor] Adverse Reaction (Verified 09/04/21 00:25) Hives codeine Adverse Reaction (Verified 09/04/21 00:25) Hives/Rash Home Medications: Insulin 70/30 NPH/Reg Human [Novolin 70/30*] 40 unit SQ DAILY WITH BREAKFAST #2 vial 09/05/21 - Past Medical/Surgical History Diabetic: Yes -: Type 1 diabetes - Family History Father Family History: Reviewed- Non-Contributory - Social History Smoking Status: Never smoker Alcohol use: No CD- Drugs: No Review of Systems 10-point ROS is otherwise unremarkable Physical Examination - Vital Signs Temperature: 98 F Blood Pressure: 120/80 Pulse: 89 Respirations: 22 Pulse Ox (%): 99 - Physical Exam General: Alert, In no apparent distress, Oriented x3 HEENT: Atraumatic, PERRLA, Mucous membr. moist/pink, EOMI, Sclerae nonicteric Neck: Supple, 2+ carotid pulse no bruit, No LAD, Without JVD or thyroid abnormality Respiratory: Clear to auscultation bilaterally, Normal air movement Cardiovascular: Regular rate/rhythm, Normal S1 S2 Gastrointestinal: Normal bowel sounds, No tenderness Musculoskeletal: No clubbing, No swelling, No tenderness Integumentary: No rashes Neurological: Normal gait, Normal speech, Normal strength at 5/5 x4 extr, Normal tone, Sensation intact, Cranial nerves 3-12 intact, Normal affect Lymphatics: No axilla or inguinal lymphadenopathy - Studies Laboratory Data (last 24 hrs) 04/07/22 14:55: PT 11.3, INR 1.03, APTT 33.3 04/07/22 14:55: WBC 16.0 H, Hgb 18.7 H, Hct 55.8 H, Plt Count 399 04/07/22 14:55: Sodium 128 L, Potassium 4.4, BUN 13, Creatinine 1.18, Glucose 467 H*, Total Bilirubin 0.4, AST 13 L, ALT 29, Alkaline Phosphatase 116 Assessment & Plan - Problems (Diagnosis) (1) DKA (diabetic ketoacidosis) Current Visit: No Status: Acute - Plan 1. Continue with insulin drip 2. Continue with aggressive IV hydration 3. Monitor hemoglobin A1c 4. Blood sugars every hour 5. Check BMP every 6 hours 6. Household Appliance Assembler regarding blood sugars 7. Repeat acetone level in a.m. 8. GI DVT prophylaxis Discharge Plan: Home Plan to discharge in: 24 Hours - Advance Directives Does patient have a Living Will: No Does patient have a Durable POA for Healthcare: No - Code Status/Comfort Care Code Status Assessed: Yes Code Status: Full Code Critical Care: No Time Spent Managing PTS Care (In Minutes): 45
[2022-04-07] MEDS: NA CHLORIDE 0.9% 1,000 ML IV SCH (19:15)
[2022-04-07] MEDS ORDERED: NA CHLORIDE 0.9% 1,000 ML ONE (19:26)
[2022-04-07] MEDS: D5 0.45 NS 1,000 ML IV SCH (19:50)
[2022-04-07] MEDS ORDERED: D5 0.45 NS 1,000 ML IV ONE (19:59)
[2022-04-07 23:12] LABS: BUN Blood Urea Nitrogen 9 mg/dL (7-18); Glomerular Filtration Rate 90 ml/min (=/>90); Glucose Level 261 mg/dL (74-106); Potassium 3.8 mmol/L (3.5-5.1); Sodium Level 136 mmol/L (136-145)
[2022-04-07 23:21] LABS: Bicarbonate 9 mmol/L (21-32)
[2022-04-08] MEDS: NA CHLORIDE 0.9% 1,000 ML IV SCH
[2022-04-08] MEDS: D5 0.45 NS 1,000 ML IV SCH ×3 (01:40→15:00)
[2022-04-08] MEDS ORDERED: D5 0.9 NS 1,000 ML IV ONE (03:06)
[2022-04-08 03:13] LABS: Absolute Lymphocytes (CBC) 2.7 K/uL (0.7-4.9); Hematocrit 44.6 % (36.0-45.0); Lymphocytes % 19.8 % (15.3-44.8); MCV 92.8 fL (80-100); MPV 10.5 fL (7.6-11.3); RBC Red Blood Cell Count 4.81 M/uL (3.86-4.86)
[2022-04-08 03:22] LABS: BUN Blood Urea Nitrogen 7 mg/dL (7-18); Glomerular Filtration Rate 103 ml/min (=/>90); Glucose Level 298 mg/dL (74-106); Magnesium 1.7 mg/dL (1.8-2.4); Phosphorus 1.1 mg/dL (2.5-4.9); Potassium 3.4 mmol/L (3.5-5.1); Sodium Level 136 mmol/L (136-145)
[2022-04-08 03:29] LABS: Bicarbonate 11 mmol/L (21-32)
[2022-04-08] MEDS: ENOXAPARIN 40 MG/0.4 ML SQ SCH (09:00)
[2022-04-08] MEDS ORDERED: ENOXAPARIN 40 MG/0.4 ML SQ ONE (09:28)
[2022-04-08] MEDS ORDERED: D5 0.45 NS 1,000 ML IV ONE (09:32)
[2022-04-08] MEDS: INSULIN -REGULAR HUMAN 100 UNIT in NA CHLORIDE 0.9% 100 ML IV SCH ×4 (11:37→14:36)
[2022-04-08 19:01] LABS: BUN Blood Urea Nitrogen 3 mg/dL (7-18); Bicarbonate 20 mmol/L (21-32); Glomerular Filtration Rate 128 ml/min (=/>90); Glucose Level 181 mg/dL (74-106); Magnesium 1.9 mg/dL (1.8-2.4); Phosphorus < 0.5 mg/dL (2.5-4.9); Sodium Level 140 mmol/L (136-145)
[2022-04-08 19:03] LABS: Potassium 2.5 mmol/L (3.5-5.1)
[2022-04-08] MEDS ORDERED: POTASSIUM CL SA 10 MEQ TAB PO ONE ×2 (19:34→20:02)
--- NOTE | 2022-04-08 19:34 | P.PN ---
Subjective Date of Service: 04/08/22 Chief Complaint: DKA Subjective: No new changes No acute events overnight. She was resting comfortably this morning on the insulin drip. She reports no concerns this morning. Review of Systems 10-point ROS is otherwise unremarkable General: Weakness, Malaise Physical Examination - Vital Signs Temperature: 98.0 F Blood Pressure: 105/67 Pulse: 95 Respirations: 18 Pulse Ox (%): 98 - Physical Exam General: Alert, In no apparent distress, Oriented x3 HEENT: Atraumatic, PERRLA, Mucous membr. moist/pink, EOMI, Sclerae nonicteric Neck: Supple, JVD not distended Respiratory: Clear to auscultation bilaterally, Normal air movement Cardiovascular: No edema, Regular rate/rhythm, Normal S1 S2, No gallops, No rubs, No murmurs Gastrointestinal: Normal bowel sounds, Soft and benign, Non-distended, No tenderness, No rebound, No guarding Musculoskeletal: No clubbing Integumentary: No rashes Neurological: Normal speech, Cranial nerves 3-12 intact, Normal affect - Studies Microbiology Data (last 24 hrs): 04/07/22 15:39 Blood - Blood Anaerobic Blood Culture - Final Assessment And Plan - Plan # Diabetic Ketoacidosis in Type 1 Diabetes Mellitus # Hypokalemia # Hypophosphatemia Likely precipitated by medication noncompliance - Continue IV fluids and IV insulin drip per DKA protocol - Once glucose between 150 - 250, switch fluids to D5W + 0.45% Normal Saline - q4hr BMP - Potassium replacement: - Serum K < 3.3 -> Hold insulin, and give 20-40 mEq per hour until K >3.3 - Serum K 3.3-5.3 -> 20-30 mEq in each liter of IV fluids, for K between 4-5 - Serum K >5.3 -> no replacement - Replace phosphorus as needed # Hyponatremia secondary to Hyperglycemia - IV fluids as mentioned above Rodriguez Shipley M.D. Discharge Plan: Home Plan to discharge in: 48 Hours
[2022-04-08] MEDS: KCL 20 MEQ/100 mL IVPB 20 MEQ/100 ML BAG IV SCH ×2 (19:43→21:52)
[2022-04-08] MEDS ORDERED: NA CHLORIDE 0.9% 250 ML ONE ×3 (19:45→23:01)
[2022-04-08] MEDS ORDERED: POTASSIUM PHOS 40 MEQ in NA CHLORIDE 0.9% 500 ML IV ONE (21:54)
[2022-04-08 22:38] VITALS: BMI 24.7
[2022-04-09] MEDS: KCL 20 MEQ/100 mL IVPB 20 MEQ/100 ML BAG IV SCH
[2022-04-09 00:42] LABS: Bicarbonate 18 mmol/L (21-32); Glomerular Filtration Rate 135 ml/min (=/>90); Glucose Level 292 mg/dL (74-106); Magnesium 1.7 mg/dL (1.8-2.4); Phosphorus 1.4 mg/dL (2.5-4.9); Potassium 3.2 mmol/L (3.5-5.1); Sodium Level 138 mmol/L (136-145)
[2022-04-09 00:48] LABS: BUN Blood Urea Nitrogen < 3 mg/dL (7-18)
[2022-04-09] MEDS ORDERED: MAGNESIUM SULFATE 1 gm IVPB 1 GM/100 ML BAG IV ONE ×2 (00:53→09:22)
[2022-04-09] MEDS ORDERED: POTASSIUM PHOS 40 MEQ in NA CHLORIDE 0.9% 500 ML IV SCH (03:00)
[2022-04-09 04:15] LABS: Absolute Lymphocytes (CBC) 2.5 K/uL (0.7-4.9); Hematocrit 37.2 % (36.0-45.0); Lymphocytes % 35.6 % (15.3-44.8); MCV 88.2 fL (80-100); MPV 9.5 fL (7.6-11.3); RBC Red Blood Cell Count 4.22 M/uL (3.86-4.86)
[2022-04-09 04:36] LABS: ALT/SGPT 20 U/L (12-78); AST/SGOT 14 U/L (15-37); Albumin 2.9 g/dL (3.4-5.0); Alkaline Phosphatase 63 U/L (45-117); Bicarbonate 19 mmol/L (21-32); Bilirubin Total 0.4 mg/dL (0.2-1.0); Glomerular Filtration Rate 139 ml/min (=/>90); Glucose Level 276 mg/dL (74-106); Magnesium 1.9 mg/dL (1.8-2.4); Phosphorus 2.6 mg/dL (2.5-4.9); Potassium 3.4 mmol/L (3.5-5.1); Sodium Level 139 mmol/L (136-145)
[2022-04-09 04:42] LABS: BUN Blood Urea Nitrogen < 3 mg/dL (7-18)
[2022-04-09] MEDS ORDERED: KCL 20 MEQ/100 mL IVPB 20 MEQ/100 ML BAG IV SCH (06:00)
--- NOTE | 2022-04-09 08:19 | EKG ---
Test Date: 2022-04-07 Test Time: 15:39:15 Senior Net Developer: SRINIVASAN MEASUREMENT RESULTS: Intervals: Rate: 137 NE: 124 QRSD: 72 QT: 298 QTc: 449 Derry: P: 68 NE: 124 QRS: 87 T: 6 INTERPRETIVE STATEMENTS: Sinus tachycardia Cannot rule out Anterior infarct, age undetermined Abnormal ECG Compared to ECG 09/03/2021 12:15:53 Myocardial infarct finding now present Sinus rhythm no longer present ST (T wave) deviation no longer present Prolonged QT interval no longer present Electronically Signed On 04-09-22 08:11:50 CDT by Yehuda Hobbs
[2022-04-09 08:34] LABS: BUN Blood Urea Nitrogen < 3 mg/dL (7-18); Bicarbonate 19 mmol/L (21-32); Glomerular Filtration Rate 138 ml/min (=/>90); Glucose Level 279 mg/dL (74-106); Magnesium 1.9 mg/dL (1.8-2.4); Phosphorus 1.6 mg/dL (2.5-4.9); Potassium 3.4 mmol/L (3.5-5.1); Sodium Level 138 mmol/L (136-145)
[2022-04-09] MEDS ORDERED: POTASSIUM PHOS 20 MM in NA CHLORIDE 0.9% 500 ML IV ONE (09:00)
[2022-04-09] MEDS: ENOXAPARIN 40 MG/0.4 ML SQ SCH (09:49)
--- NOTE | 2022-04-09 11:17 | P.PN ---
Subjective Date of Service: 04/09/22 Chief Complaint: DKA Subjective: Improving She has had multiple electrolyte derangements overnight, requiring replacement. This morning, she feels well and reports no concerns. Review of Systems 10-point ROS is otherwise unremarkable General: Malaise Physical Examination - Vital Signs Temperature: 97 F Blood Pressure: 134/85 Pulse: 100 Respirations: 14 Pulse Ox (%): 97 - Studies Microbiology Data (last 24 hrs): 04/07/22 15:39 Blood - Blood Anaerobic Blood Culture - Final Assessment And Plan - Plan - Physical Exam General: Alert, In no apparent distress, Oriented x3 HEENT: Atraumatic, PERRLA, Mucous membr. moist/pink, EOMI, Sclerae nonicteric Neck: Supple, JVD not distended Respiratory: Clear to auscultation bilaterally, Normal air movement Cardiovascular: No edema, Regular rate/rhythm, Normal S1 S2, No gallops, No ru bs, No murmurs Gastrointestinal: Normal bowel sounds, Soft and benign, Non-distended, No tenderness, No rebound, No guarding Musculoskeletal: No clubbing Integumentary: No rashes Neurological: Normal speech, Cranial nerves 3-12 intact, Normal affect - Plan # Diabetic Ketoacidosis in Type 1 Diabetes Mellitus, improved # Hypokalemia # Hypophosphatemia # Hyponatremia secondary to Hyperglycemia, resolved DKA likely precipitated by medication noncompliance. Electrolyte derangements likely due to insulin - Doing well this morning, plan to downgrade from ICU to Med/Surg - Once electrolytes replaced, plan to resume home insulin and start diet - If glucose levels and anion gap remain acceptable, plan for discharge tomorrow Rodriguez Shipley M.D. Discharge Plan: Home Plan to discharge in: 24 Hours
[2022-04-09 12:56] LABS: Bicarbonate 20 mmol/L (21-32); Glomerular Filtration Rate 141 ml/min (=/>90); Glucose Level 302 mg/dL (74-106); Magnesium 2.1 mg/dL (1.8-2.4); Phosphorus 2.3 mg/dL (2.5-4.9); Potassium 3.2 mmol/L (3.5-5.1); Sodium Level 136 mmol/L (136-145)
[2022-04-09 13:02] LABS: BUN Blood Urea Nitrogen < 3 mg/dL (7-18)
[2022-04-09] MEDS ORDERED: GLUCAGON 1 MG/VIAL IM PRN (13:31)
[2022-04-09] MEDS ORDERED: D50W 25 GM/50 ML SYRINGE IV PRN (13:31)
[2022-04-09] MEDS ORDERED: DEXTROSE 10%-WATER 125 ML IV PRN (13:39)
[2022-04-09] MEDS: INSULIN -REGULAR HUMAN 50 UNIT/0.5 ML ML SQ SCH ×3 (13:45→20:42)
[2022-04-09] MEDS ORDERED: INSULIN GLARGINE 100 UNIT/ML SQ ONE (14:00)
[2022-04-09 14:02] VITALS: O2SAT 99
[2022-04-09 16:23] LABS: Bicarbonate 23 mmol/L (21-32); Glomerular Filtration Rate 133 ml/min (=/>90); Glucose Level 321 mg/dL (74-106); Magnesium 2.1 mg/dL (1.8-2.4); Potassium 3.2 mmol/L (3.5-5.1); Sodium Level 136 mmol/L (136-145)
[2022-04-09 16:35] LABS: BUN Blood Urea Nitrogen < 3 mg/dL (7-18)
[2022-04-09] MEDS: POTASS/SODIUM PHOSPHATE 1 PKT POWD.PACK PO SCH ×6 (17:08→23:55)
[2022-04-09] MEDS ORDERED: POTASSIUM 25 MEQ EFFERV TAB PO ONE (18:00)
[2022-04-09 20:22] LABS: Phosphorus 2.1 mg/dL (2.5-4.9); Potassium 3.9 mmol/L (3.5-5.1)
[2022-04-10 05:20] LABS: Absolute Lymphocytes (CBC) 3.3 K/uL (0.7-4.9); Hematocrit 41.7 % (36.0-45.0); Lymphocytes % 50.3 % (15.3-44.8); MCV 89.4 fL (80-100); MPV 9.8 fL (7.6-11.3); RBC Red Blood Cell Count 4.67 M/uL (3.86-4.86)
[2022-04-10 05:47] LABS: ALT/SGPT 22 U/L (12-78); AST/SGOT 11 U/L (15-37); Albumin 3.2 g/dL (3.4-5.0); Alkaline Phosphatase 79 U/L (45-117); Bicarbonate 27 mmol/L (21-32); Bilirubin Total 0.3 mg/dL (0.2-1.0); Glomerular Filtration Rate 145 ml/min (=/>90); Glucose Level 221 mg/dL (74-106); Phosphorus 3.2 mg/dL (2.5-4.9); Protein, Total 6.7 g/dL (6.4-8.2); Sodium Level 138 mmol/L (136-145)
[2022-04-10 05:48] LABS: BUN Blood Urea Nitrogen < 3 mg/dL (7-18)
[2022-04-10] MEDS ORDERED: POTASSIUM CL SA 10 MEQ TAB PO ONE ×2 (06:22→07:11)
--- NOTE | 2022-04-10 07:18 | P.DS ---
Admission Date: 04/07/22 Discharge Date: 04/10/22 Disposition: ROUTINE DISCHARGE Discharge Condition: GOOD Reason for Admission: DKA Hospital Course: DIAGNOSES: # Diabetic Ketoacidosis in Type 1 Diabetes Mellitus due to Medication Noncompliance # Substance Use Disorder - Cocaine and Cannabinoids # Hypokalemia # Hypophosphatemia # Hyponatremia secondary to Hyperglycemia, resolved HOSPITAL COURSE: Ms. Maddie Renteria is a 21 year old female with a past medical history significant for type I diabetes mellitus and substance uses disorder (cocaine, cannabinoids) who was admitted to the [facility] on 04/07/2022 for diabetic ketoacidosis. She was admitted to the Medicine service and treated with insulin and IV fluids per the DKA protocol. Over the course of her hospitalization, her glucose levels continued to improve and her anion gap closed. Her hospital course was complicated by several electrolyte derangements, which all improved with electrolyte replacement. This morning, her potassium was 3.0 and she was given 60 mEq. I offered to recheck it for her in about two hours, but she stated that she would like to leave now as she feels well. She follows with Kayla Bright NP and has agreed to make an appointment with her either tomorrow or Friday for repeat blood work, which is reasonable. She was also provided extensive counseling on substance cessation. Additionally, she was advised to return to the Emergency Department should she develop any new symptoms or develop persistent hyperglycemia. On 04/10/2022, she was seen on morning rounds and deemed medically stable for discharge. She was discharged with instructions to schedule follow-up appointments with her PCP (Kayla Bright NP) in 1-2 days. She was given the opportunity to ask questions and reported no further questions. Furthermore, all questions were answered to the best of my ability. Today, I personally spent 20 minutes on her case, of which greater than 50% of the time was spent in patient education, counseling, and coordination of care as described above. - Physical Exam General: Alert, In no apparent distress, Oriented x3 HEENT: Atraumatic, PERRLA, Mucous membr. moist/pink, EOMI, Sclerae nonicteric Neck: Supple, JVD not distended Respiratory: Clear to auscultation bilaterally, Normal air movement Cardiovascular: No edema, Regular rate/rhythm, Normal S1 S2, No gallops, No rubs, No murmurs Gastrointestinal: Normal bowel sounds, Soft and benign, Non-distended, No tenderness, No rebound, No guarding Musculoskeletal: No clubbing Integumentary: No rashes Neurological: Normal speech, Cranial nerves 3-12 intact, Normal affect Vital Signs/Physical Exam: Temp Pulse Resp BP Pulse Ox 98.2 F 83 18 120/87 97 04/10/22 04:00 04/10/22 06:00 04/10/22 06:00 04/10/22 06:00 04/10/22 06:00 Laboratory Data at Discharge: WBC 6.50 K/uL (4.3-10.9) 04/10/22 04:34 Hgb 14.9 g/dL (12.0-15.0) 04/10/22 04:34 Hct 41.7 % (36.0-45.0) 04/10/22 04:34 Plt Count 226 K/uL (152-406) 04/10/22 04:34 PT 11.3 SECONDS (9.5-12.5) 04/07/22 14:55 INR 1.03 04/07/22 14:55 APTT 33.3 SECONDS (24.3-36.9) 04/07/22 14:55 Sodium 138 mmol/L (136-145) 04/10/22 04:34 Potassium 3.0 mmol/L (3.5-5.1) L 04/10/22 04:34 BUN < 3 mg/dL (7-18) L 04/10/22 04:34 Creatinine 0.39 mg/dL (0.55-1.3) L 04/10/22 04:34 Glucose 221 mg/dL (74-106) H 04/10/22 04:34 Phosphorus 3.2 mg/dL (2.5-4.9) D 04/10/22 04:34 Magnesium 2.0 mg/dL (1.8-2.4) 04/10/22 04:34 Total Bilirubin 0.3 mg/dL (0.2-1.0) 04/10/22 04:34 AST 11 U/L (15-37) L 04/10/22 04:34 ALT 22 U/L (12-78) 04/10/22 04:34 Alkaline Phosphatase 79 U/L (45-117) 04/10/22 04:34 Home Medications: RX: Insulin Detemir [Levemir] 45 unit SQ DAILY 04/08/22 Physician Discharge Instructions: PROBLEM: Diabetic Ketoacidosis GOAL: Clear understanding of disease process INSTRUCTIONS: Diet: ADA Activity: Ad giuliana DME DME: Date Ordered: Name of Company: [employer] Services Needed: None Name of Company: Date or Referral: IMMUNIZATION Influenza Vaccine Indicated: Influenza Vaccine Given: Date Given: Pneumonia Vaccine Indicated: No Pneumonia Vaccine Given: Date Given: 1. Please schedule a follow-up appointment with your PCP (Kayla Bright NP) in 1-2 days Please make sure you get yearly eye exams, urine studies, and foot exams with your PCP for routine diabetes screening. Please make sure you take your insulin as prescribed and do not miss any doses. Diet: ADA Activity: Ad giuliana Followup: KAYLA BRIGHT [OUTSIDE PHYSICIAN] - Time spent managing pt's care (in minutes): 20
[2022-04-10] MEDS: ENOXAPARIN 40 MG/0.4 ML SQ SCH (08:08)
[2022-04-10] MEDS: INSULIN -REGULAR HUMAN 50 UNIT/0.5 ML ML SQ SCH (08:08)
[2022-04-10] MEDS ORDERED: INSULIN GLARGINE 100 UNIT/ML SQ SCH (09:00)
[2022-04-10 10:15] VITALS: BP 123/87; TEMP 96.6
== END 2022-04-10 09:35 | disposition home or self-care (01) | DRG 638 ==
LOC: ER 14:34 → ERHOLD 18:33 → 3RD-ICU 04-08 20:35
PROVIDERS: ADMIT Hospitalist; ATTEND Hospitalist
DX: E10.10 Type 1 diabetes mellitus with ketoacidosis without coma (principal); E87.1 Hypo-osmolality and hyponatremia; E87.6 Hypokalemia; E83.39 Other disorders of phosphorus metabolism; F14.90 Cocaine use, unspecified, uncomplicated; F12.90 Cannabis use, unspecified, uncomplicated; Z91.14 Patient's other noncompliance with medication regimen; Z79.4 Long term (current) use of insulin; Z20.822 Contact with and (suspected) exposure to COVID-19
CPT/HCPCS: 36415; 80048; 80053; 80076; 80307; 80329; 81003; 82010; 82947; 83735; 84100; 84132; 85025; 85610; 85730; 87040; 87811; 93005; 99285; J1650; J1815; J2550; J3475; J3480; J7030; J7040; J7042; J7050; J7799

== ENCOUNTER 2022-10-02 20:32 | Emergency (ER) | payer OTHER ==
--- NOTE | 2022-10-02 21:41 | RAD REPORT ---
EXAM DESCRIPTION: US - Extremity Venous Uni Ltd - 10/02/2022 9:35 pm CLINICAL HISTORY: PAIN Leg swelling and edema. COMPARISON: <Comparisons> FINDINGS: Right lower extremity venous system was interrogated with Doppler technique. Normal flow, compressibility and augmentation was noted. There is no DVT present. IMPRESSION: No evidence of right lower extremity deep venous thrombosis.
[2022-10-02 22:08] LABS: Urine Blood Negative (Negative); Urine Glucose 2+ (Negative); Urine Protein Negative (Negative); Urine Specific Gravity 1.015 (1.005-1.030)
[2022-10-02 22:34] LABS: Urine Bacteria None Seen /HPF (<20); Urine RBC <5 /HPF (None Seen)
[2022-10-02 22:36] LABS: Absolute Lymphocytes (CBC) 3.1 K/uL (0.7-4.9); Lymphocytes % 43.4 % (15.3-44.8); MCV 89.4 fL (80-100); MPV 10.4 fL (7.6-11.3); RBC Red Blood Cell Count 5.03 M/uL (3.86-4.86)
[2022-10-02 22:37] LABS: BUN Blood Urea Nitrogen 7 mg/dL (7-18); Bicarbonate 29 mmol/L (21-32); Glomerular Filtration Rate 134 ml/min (=/>90); Potassium 3.6 mmol/L (3.5-5.1); Sodium Level 134 mmol/L (136-145)
[2022-10-02 22:40] LABS: Glucose Level 493 mg/dL (74-106)
[2022-10-02] MEDS ORDERED: INSULIN -REGULAR HUMAN 50 UNIT/0.5 ML ML ONE (22:58)
[2022-10-02] MEDS ORDERED: NA CHLORIDE 0.9% 1,000 ML ONE (22:59)
--- NOTE | 2022-10-03 00:11 | EDPHYS ---
Physician Documentation [facility] Name: Maddie Renteria Age: 21 yrs Sex: Female : 2000 Arrival Date: 10/02/2022 Time: 20:35 Bed 7 Private MD: ED Physician Saqib Chaparro HPI: 10/03 00:09 This 21 yrs old Female presents to ER via Ambulatory with complaints of Leg kb Pain, Abdominal Pain. 00:09 The patient or guardian reports that was potentially precipitated by. The patient has kb experienced similar episodes in the past. The patient has not recently seen a physician. 00:11 Onset: The symptoms/episode began/occurred 2 month(s) ago. Associated signs and kb symptoms: Pertinent positives: abd cramping, low back pain, leg pain/swelling, hyperglycemia. Current symptoms: In the emergency department the patient's symptoms are unchanged from the initial presentation. Pt reports she has had bilateral leg pain due to neuropathy, but right leg has had intermittent swelling so she is worried about a blood clot. also reports sugar has been running high and she has had abd cramps. . Historical: - Allergies: 10/02 20:50 No Known Allergies; kr3 - Home Meds: 10/03 00:31 None [Active]; ll3 - PMHx: 10/02 20:50 Diabetes - IDDM; kr3 - PSHx: 10/03 00:31 None; ll3 - Immunization history:: Adult Immunizations not up to date. - Social history:: Smoking status: Patient reports the use of cigarette tobacco products, denies chronic smoking, but will smoke occasionally, Reported history of juuling and/or vaping. ROS: 00:06 Constitutional: Negative for fever, chills, and weight loss. kb 00:06 Abdomen/GI: Positive for abdominal cramps. 00:06 MS/extremity: Positive for pain, swelling, of the right leg. 00:06 All other systems are negative. Exam: 00:06 Constitutional: This is a well developed, well nourished patient who is awake, alert, kb and in no acute distress. Head/Face: Normocephalic, atraumatic. ENT: Moist Mucous membranes Cardiovascular: Regular rate and rhythm with a normal S1 and S2. No gallops, murmurs, or rubs. No pulse deficits. Respiratory: Respirations even and unlabored. No increased work of breathing. Talking in full sentences Abdomen/GI: Soft, non-tender. No distention Skin: Warm, dry with normal turgor. Normal color. MS/ Extremity: Pulses equal, no cyanosis. Neurovascular intact. Full, normal range of motion. Neuro: Awake and alert, GCS 15, oriented to person, place, time, and situation. Moves all extremities. Normal gait. Vital Signs: 10/02 20:46 BP 127 / 83; Pulse 109; Resp 18; Temp 98.6; Pulse Ox 98% on R/A; Weight 49.44 kg; kr3 Height 5 ft. 4 in. (162.56 cm); 23:07 BP 136 / 102; Pulse 105; Resp 18; Pulse Ox 98% on R/A; kl 10/03 00:05 BP 124 / 98; Pulse 98; Resp 15; Pulse Ox 98% on R/A; kl 10/02 20:46 Body Mass Index 18.71 (49.44 kg, 162.56 cm) kr3 MDM: 10/02 20:43 Patient medically screened. kb 10/03 00:02 Data reviewed: vital signs, nurses notes. kb 00:09 Differential diagnosis: DKA, hyperglycemia, DVT. Counseling: I had a detailed kb discussion with the patient and/or guardian regarding: the historical points, exam findings, and any diagnostic results supporting the discharge/admit diagnosis, lab results, radiology results, the need for outpatient follow up, a family practitioner, to return to the emergency department if symptoms worsen or persist or if there are any questions or concerns that arise at home. 10/02 20:50 Order name: CBC with Diff; Complete Time: 22:43 kb 10/02 20:50 Order name: Basic Metabolic Panel; Complete Time: 22:41 kb 10/02 20:50 Order name: Acetone, Serum; Complete Time: 22:41 kb 10/02 20:50 Order name: Urine Microscopic Only; Complete Time: 22:40 kb 10/02 22:07 Order name: Urine --Ancillary (enter results) ds4 10/02 22:08 Order name: Urine Dipstick-Ancillary; Complete Time: 22:10 EDMS 10/02 20:50 Order name: IV Start; Complete Time: 22:08 kb 10/02 20:50 Order name: Urine Dipstick-Ancillary (obtain specimen); Complete Time: 22:08 kb 10/02 20:50 Order name: Urine Test (obtain specimen); Complete Time: 22:08 kb 10/02 20:50 Order name: US Extremity Venous Unilateral Ltd; Complete Time: 21:43 kb 10/03 00:04 Order name: Glucose, Ancillary Testing; Complete Time: 00:10 EDMS 10/03 00:08 Order name: Glucose, Ancillary Testing EDUT 10/02 23:50 Order name: Blood Glucose Level; Complete Time: 23:52 kb Administered Medications: 10/02 23:05 Drug: Insulin Regular Human 10 units {Co-Signature: ll3 (Dina Monroy RN).} Route: kl IVP; Site: right antecubital; 10/03 00:32 Follow up: Response: No adverse reaction; Blood sugar is lowered ll3 10/02 23:05 Drug: NS 0.9% 1000 ml Route: IV; Rate: 1000 ml; Site: right antecubital; 10/03 00:32 Follow up: Response: No adverse reaction; IV Status: Completed infusion; IV Intake: ll3 1000ml Disposition Summary: 10/03/22 00:10 Discharge Ordered Location: Home kb Condition: Stable kb Diagnosis - Hyperglycemia, unspecified kb Followup: kb - With: Emergency Department - When: As needed - Reason: Worsening of condition Followup: kb - With: Private Physician - When: 2 - 3 days - Reason: Recheck today's complaints, Continuance of care, Re-evaluation by your physician Discharge Instructions: - Discharge Summary Sheet kb - Hyperglycemia, [id number] kb Forms: - Medication Reconciliation Form kb - Thank You Letter kb - Antibiotic Education kb - Prescription Opioid Use kb Signatures: Dispatcher [employer] EDCarrie Flor FNP-C [employer]-Alondra Melendez RN Dina Benjamin RN RN 3 Kellie Patel RN RN kr3 Dina Monroy RN 3 Corrections: (The following items were deleted from the chart) 10/02 20:51 20:50 Allergies: No Known Allergies; kr3 kr3 10/03 00:30 10/02 20:50 PSHx: None; kr3 ll3 02/09 00:31 00:29 Home Meds: metformin 500 mg Oral tab 1 tab daily; ll3 ll3 Home Meds: levofloxacin 500 mg Oral tab 1 tab; X10 days; ll3 ll3 PSHx: Total abdominal hysterectomy; ll3 ll3
--- NOTE | 2022-10-03 00:11 | ER ---
Nurse's Notes [facility] Name: Maddie Renteria Age: 21 yrs Sex: Female : 2000 Arrival Date: 10/02/2022 Time: 20:35 Bed 7 Private MD: Diagnosis: Hyperglycemia, unspecified Presentation: 10/02 20:46 Chief complaint: Patient states: My knees have been swelling and the bottom of my foot. kr3 I also think something is going on with my kidneys. Coronavirus screen: Vaccine status: Patient reports being unvaccinated. Ebola Screen: Patient denies travel to an Ebola-affected area in the 21 days before illness onset. Initial Sepsis Screen: Does the patient meet any 2 criteria? No. Patient's initial sepsis screen is negative. Does the patient have a suspected source of infection? No. Patient's initial sepsis screen is negative. Risk Assessment: Do you want to hurt yourself or someone else? Patient reports no desire to harm self or others. Onset of symptoms was June 03, 2023. 20:46 Method Of Arrival: Ambulatory kr3 20:46 Acuity: TANIYA 3 kr3 Triage Assessment: 20:51 General: Appears in no apparent distress. comfortable, Behavior is calm, cooperative, kr3 appropriate for age. Historical: - Allergies: 20:50 No Known Allergies; kr3 - Home Meds: 10/03 00:31 None [Active]; ll3 - PMHx: 10/02 20:50 Diabetes - IDDM; kr3 - PSHx: 10/03 00:31 None; ll3 - Immunization history:: Adult Immunizations not up to date. - Social history:: Smoking status: Patient reports the use of cigarette tobacco products, denies chronic smoking, but will smoke occasionally, Reported history of juuling and/or vaping. Screenin/08 23:08 [facility] ED Fall Risk Assessment (Adult) History of falling in the last 3 months, kl including since admission No falls in past 3 months (0 pts) Confusion or Disorientation No (0 pts) Intoxicated or Sedated No (0 pts) Impaired Gait No (0 pts) Mobility Assist Device Used No (0 pt) Altered Elimination No (0 pt) Score/Fall Risk Level 0 - 2 = Low Risk Oriented to surroundings, Maintained a safe environment. Abuse screen: Denies threats or abuse. Nutritional screening: No deficits noted. Tuberculosis screening: No symptoms or risk factors identified. Assessment: 23:06 General: Appears comfortable, ill, slender, well groomed, well developed, Behavior is kl calm, cooperative, Denies. Pain: Complains of pain in generalized aches. Neuro: No deficits noted. Cardiovascular: Rhythm is sinus tachycardia. Respiratory: No deficits noted. GI: Bowel sounds present X 4 quads. Abd is soft. : No deficits noted. No signs and/or symptoms were reported regarding the genitourinary system. EENT: No deficits noted. Vital Signs: 20:46 BP 127 / 83; Pulse 109; Resp 18; Temp 98.6; Pulse Ox 98% on R/A; Weight 49.44 kg; kr3 Height 5 ft. 4 in. (162.56 cm); 23:07 BP 136 / 102; Pulse 105; Resp 18; Pulse Ox 98% on R/A; kl 10/03 00:05 BP 124 / 98; Pulse 98; Resp 15; Pulse Ox 98% on R/A; kl 10/02 20:46 Body Mass Index 18.71 (49.44 kg, 162.56 cm) kr3 ED Course: 10/02 20:35 Patient arrived in ED. jj6 20:35 Carrie Bullard FNP-C [facility] kb 20:35 Saqib Chaparro MD is Attending Physician. kb 20:50 Triage completed. kr3 21:37 US Extremity Venous Unilateral Ltd In Process Unspecified. EDMS 22:07 Inserted saline lock: 20 gauge in right antecubital area, using aseptic technique. zm Blood collected. 22:08 Urine Microscopic Only Sent. zm 22:08 Acetone, Serum Sent. zm 22:08 Basic Metabolic Panel Sent. zm 22:08 CBC with Diff Sent. zm 22:39 Notified ED physician of a critical lab result(s). Glucose 493. ll3 23:00 Arm band placed on Patient placed in an exam room, on a stretcher, on pulse oximetry. ll3 23:52 blood sugar 278. kl 10/03 00:30 Patient has correct armband on for positive identification. Bed in low position. Call ll3 light in reach. Side rails up X 1. 00:31 No provider procedures requiring assistance completed. IV discontinued, intact, ll3 bleeding controlled, No redness/swelling at site. Pressure dressing applied. Administered Medications: 10/02 23:05 Drug: Insulin Regular Human 10 units {Co-Signature: ll3 (Dina Monroy RN).} Route: kl IVP; Site: right antecubital; 10/03 00:32 Follow up: Response: No adverse reaction; Blood sugar is lowered ll3 10/02 23:05 Drug: NS 0.9% 1000 ml Route: IV; Rate: 1000 ml; Site: right antecubital; 10/03 00:32 Follow up: Response: No adverse reaction; IV Status: Completed infusion; IV Intake: ll3 1000ml Medication: 00:29 VIS not applicable for this client. ll3 Intake: 00:32 IV: 1000ml; Total: 1000ml. ll3 Outcome: 00:10 Discharge ordered by . kb 00:31 Discharged to home ambulatory, with family. ll3 00:31 Condition: stable 00:31 Discharge instructions given to patient, family, Instructed on discharge instructions, follow up and referral plans. Demonstrated understanding of instructions, follow-up care. 00:32 Patient left the ED. ll3 Signatures: Dispatcher [employer] EDDC Carrie Bullard, Alondra Bo RN RN kl Jeffries, Jennifer jj6 Loubet, Lynsea, RN RN ll3 Tatiana Ramirez Kelley, RN RN 3 Dina Monroy RN 3 Corrections: (The following items were deleted from the chart) 10/02 20:51 20:50 Allergies: No Known Allergies; kr3 kr3 10/03 00:30 10/02 20:50 PSHx: None; kr3 ll3 10/03 99: 00:29 Home Meds: metformin 500 mg Oral tab 1 tab daily; ll3 ll3 00:29 Home Meds: levofloxacin 500 mg Oral tab 1 tab; X10 days; ll3 ll3 00:29 PSHx: Total abdominal hysterectomy; ll3 ll3 00:29 LMP N/A - Hysterectomy ll3 ll3
[2022-10-03 00:18] LABS: Urine Specific Gravity/Preg 1.015 (1.005-1.030)
[2022-10-03 00:53] VITALS: TEMP 98.6; O2SAT 98
[2022-10-03 01:05] VITALS: BP 124/98
== END 2022-10-03 00:32 | disposition home or self-care (01) ==
LOC: ER 20:32
DX: E11.65 Type 2 diabetes mellitus with hyperglycemia (principal); M79.604 Pain in right leg; F17.210 Nicotine dependence, cigarettes, uncomplicated
CPT/HCPCS: 96361; 85025; 80048; 36415; 82010; 81025; 82947; 93971; 96374; 99284; J1815; J7030; 81003; 81015

== ENCOUNTER 2024-04-09 13:49 | Emergency (ER) | payer OTHER, SELFPAY ==
--- NOTE | 2024-04-09 16:36 | RAD REPORT ---
EXAM DESCRIPTION: RAD - Chest Pa And Lat (2 Views) - 04/09/2024 3:12 pm CLINICAL HISTORY: CHEST PAIN COMPARISON: No comparisons TECHNIQUE: PA and lateral views of the chest were obtained. FINDINGS: The lungs are clear. Heart size is normal and central vasculature is within normal limits. No pleural effusion or pneumothorax seen. No acute bony finding noted. IMPRESSION: No acute cardiopulmonary process.
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
[2024-04-09 17:45] VITALS: O2SAT 100
[2024-04-09 17:47] VITALS: BP 110/78; TEMP 98
--- OUTSIDE RECORDS SUMMARY | 2024-04-12 08:42 | XMS REPORT | Continuity of Care Document ---
Author Name Unknown Address [address] [place] [address] [place], [place] [address]ect Address [address] [place] [address] [address] [place] [address] Care Team Providers Care Radio Communications Mechanician Name Role Phone Unavailable Unavailable Unavailable Encounters Start Date/Time End Date/Time Encounter Type Admission Type Attending Clinicians Care Facility Care Department Encounter ID Source 2023-04-22 14:57:08 2023-04-22 14:57:08 Outpatient [facility] [id number] Robb Stevens
== END 2024-04-09 17:36 | disposition home or self-care (01) ==
LOC: ER 13:49
DX: R07.89 Other chest pain (principal); E11.9 Type 2 diabetes mellitus without complications; Z79.4 Long term (current) use of insulin
CPT/HCPCS: 71046; 99283

== ENCOUNTER 2024-08-30 14:08 | Emergency (ER) | payer SELFPAY ==
--- OUTSIDE RECORDS SUMMARY | 2024-08-30 14:11 | XMS REPORT | Continuity of Care Document ---
Author Name Unknown Address [address] [place] [address] James. [address] [place] [address] [facility] Address [address] [facility] James. [address] [place] [address] Care Team Providers Care Principal Strategist Name Role Phone Nathan SILVA, Kayla Primary Care Physician [phone] Medications Ordered Medication Name Filled Medication Name Start Date Stop Date Current Medication? Ordering Clinician Indication Dosage Frequency Signature (SIG) Comments Components Source Lantus Solostar U-100 Insulin 100 unit/mL (3 mL) subcutaneou s pen 2023-08 00:00: 00 Yes (3 mL) Robb Kelton Rodney nystatin 100,000 unit/gram topical cream 2023-08 00:00: 00 Yes 1unit/g zhane Robb Kelton Rodney amoxicillin 500 mg capsule 2023-08 00:00: 00 Yes 1mg Robb Stevens 10 UNITS SQ TID WITH EACH MEAL AFTER CHECKING GLU - MAY INCREASE OR DECREASE 2 UNITS /GLU READING 04-22 00:00: 00 Yes 100 Robb Kelton Rodney INJECT 10 UNITS UNDER THE SKIN THREE TIMES DAILY WITH EACH MEAL AFTER CHECKING GLUCOSE 04-22 00:00: 00 Yes Robb Kelton Rodney 40 SQ SD 04-22 00:00: 00 12-15 00:00 :00 No 200 Robb Kelton Rodney 1 TAB PO QHS 04-22 00:00: 00 12-15 00:00 :00 No 25 Robb Kelton Rodney TAKE 1 TABLET BY MOUTH EVERY DAY 08-30 00:00: 00 Yes Robb Stevens TAKE 1 TABLET BY MOUTH EVERY NIGHT AT BEDTIME 08-30 00:00: 00 Yes Robb Kelton Rodney TAKE 1 TABLET BY MOUTH EVERY 8 HOURS NEEDED FOR PAIN 2021-08 00:00: 00 Yes Robb Stevens TAKE 1 CAPSULE BY MOUTH THREE TIMES A DAY FOR 7 DAYS 2021-08 00:00: 00 Yes Robb Stevens FILL CAP TO FILL LINE (15 ML). SWISH FOR 30 SECS THEN SPIT TWICE A DAY . AFTER BREAKFAST, BEFORE BED 2021-08 00:00: 00 Yes Robb Stevens TAKE 1 TABLET BY MOUTH EVERY 4-6 HRS NEEDED FOR PAIN 05-24 00:00: 00 Yes Robb Stevens TAKE 1 TABLET BY MOUTH EVERY 8 HOURS NEEDED FOR PAIN 05-24 00:00: 00 Yes Robb Stevens TAKE 1 CAPSULE BY MOUTH 3 TIMES A DAY FOR 7 DAYS 05-24 00:00: 00 Yes Robb Stevens Lexapro 10 mg tablet 2018-08 0 00:00: 00 Yes 1mg Robb Stevens hydroxyzine HCl 50 mg tablet 2018-08 015 00:00: 00 Yes 51mg Robb Stevens Prozac 20 mg capsule 23 00:00: 00 Yes 1mg Robb Stevens Prozac 20 mg capsule 13 00:00: 00 Yes 1mg Robb Stevens Prozac 20 mg capsule 16 00:00: 00 Yes 1mg Robb Stevens Levemir FlexTouch U-100 Insulin 100 unit/mL (3 mL) subcutaneou s pen 12-01 00:00: 00 Yes 1(3 mL) Robb Stevens loratadine 10 mg tablet 12-01 00:00: 00 Yes 1mg Robb Stevens Prozac 20 mg capsule 09 00:00: 00 Yes 1mg Robb Stevens Vital Signs Vital Name Observation Time Observation Value Comments S ource Respiratory Rate 2024-07-07 11:29:00 18.00 /min Robb Stevens BP Systolic 2024-07-07 11:29:00 100 mm[Hg] Dipak Stevens BP Diastolic 2024-07-07 11:29:00 82 mm[Hg] James Stevens Weight Measured 2024-07-07 11:29:00 120.00 pounds Robb Stevens Height Measured 2024-07-07 11:29:00 63.00 inches Robb F Rodney Body Temperature 2024-07-07 11:29:00 97.40 degrees Robb F Rodney Heart Rate 2024-07-07 11:29:00 110.00 /min Step hen F Rodney BP Systolic 2023-04-22 15:14:00 118 mm[Hg] Step hen F Rodney BP Diastolic 2023-04-22 15:14:00 96 mm[Hg] James phen F Rodney Weight Measured 2023-04-22 15:14:00 92.00 pounds Robb F Rodney Height Measured 2023-04-22 15:14:00 63.00 inches Robb F Rodney Body Temperature 2023-04-22 15:14:00 97.60 degrees Robb F Rodney Heart Rate 2023-04-22 15:14:00 134.00 /min Step hen F Rodney Respiratory Rate 2023-04-22 15:14:00 18.00 /min Robb F Rodney BP Systolic 2019-06-08 11:32:00 121 mm[Hg] Step hen F Rodney BP Diastolic 2019-06-08 11:32:00 75 mm[Hg] James phen F Rodney Weight Measured 2019-06-08 11:32:00 196.60 pounds Robb F Rodney Height Measured 2019-06-08 11:32:00 63.58 inches Robb F Rodney Body Temperature 2019-06-08 11:32:00 Robb F Rodney Heart Rate 2019-06-08 11:32:00 95.00 /min Genesis en F Rodney Respiratory Rate 2019-06-08 11:32:00 18.00 /min Robb F Rodney BP Systolic 2019-03-16 16:03:00 119 mm[Hg] Step hen F Rodney BP Diastolic 2019-03-16 16:03:00 80 mm[Hg] James phen F Rodney Weight Measured 2019-03-16 16:03:00 138.40 pounds Robb F Rodney Height Measured 2019-03-16 16:03:00 63.58 inches Robb F Rodney Body Temperature 2019-03-16 16:03:00 98.40 degrees Robb F Rodney Heart Rate 2019-03-16 16:03:00 105.00 /min Step hen F Rodney Respiratory Rate 2019-03-16 16:03:00 19.00 /min Robbpetey Stevens BP Systolic 2019-01-07 13:51:00 131 mm[Hg] Step hen F Rodney BP Diastolic 2019-01-07 13:51:00 75 mm[Hg] James phen F Rodney Weight Measured 2019-01-07 13:51:00 146.60 pounds Robb Stevens Height Measured 2019-01-07 13:51:00 63.58 inches Robb F Rodney Body Temperature 2019-01-07 13:51:00 98.20 degrees Robb F Rodney Heart Rate 2019-01-07 13:51:00 103.00 /min Step hen F Rodney Respiratory Rate 2019-01-07 13:51:00 19.00 /min Robb F Rodney BP Systolic 2018-12-01 15:09:00 126 mm[Hg] Step hen F Rodney BP Diastolic 2018-12-01 15:09:00 75 mm[Hg] James phen F Rodney Weight Measured 2018-12-01 15:09:00 149.20 pounds Robb Stevens Height Measured 2018-12-01 15:09:00 63.58 inches Robb Stevens Body Temperature 2018-12-01 15:09:00 98.50 degrees Robbpetey Stevens Heart Rate 2018-12-01 15:09:00 107.00 /min Step hen F Rodney Respiratory Rate 2018-12-01 15:09:00 18.00 /min Robb Stevens Encounters Start Date/Time End Date/Time Encounter Type Ad[facility] Encounter ID Source 2024-07-29 09:57:09 2024-07-29 09:57:09 Outpatient [facility] [id number] Robb Stevens 2024-07-07 11:21:03 2024-07-07 11:21:03 Outpatient [facility] [id number] Robb Stevens 2024-07-07 00:00:00 2024-07-07 00:00:00 Outpatient Visit [facility] [id number] Robb Stevens 2023-04-22 14:57:08 2023-04-22 14:57:08 Outpatient [facility] [id number] Robb Stevens Results Test Description Test Time Test Comments Results Result Co mments Source Robb StevensSARS-CoV-2 (COVID-19) by RT-PCR (HIGH RISK)2020-03-14 00:00:00* Test Item Value Reference Range Interpretation Comme nts SARS-CoV-2 INTERPRETATION (t est code = 18184) NEGATIVE SOURCE (test code = 33364) NOT SPECIFIED Robb Stevens
[2024-08-30] MEDS ORDERED: FLUORESCEIN SODIUM 1 MG/WRAP ONE (15:36)
[2024-08-30] MEDS ORDERED: TETRACAINE HCL 0.5% 4ML OPTH ONE (15:36)
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
[2024-08-30 16:03] VITALS: BP 115/78; TEMP 97.5; O2SAT 100
== END 2024-08-30 15:58 | disposition home or self-care (01) ==
LOC: ER 14:08
DX: S05.02XA Injury of conjunctiva and corneal abrasion without foreign body, left eye, initial encounter (principal); E11.9 Type 2 diabetes mellitus without complications; F17.290 Nicotine dependence, other tobacco product, uncomplicated; W50.0XXA Accidental hit or strike by another person, initial encounter; Y93.9 Activity, unspecified; Y92.019 Unspecified place in single-family (private) house as the place of occurrence of the external cause; Z88.5 Allergy status to narcotic agent
CPT/HCPCS: 99283